=== PATIENT | male | born 1965 | race Caucasian/White ===

== ENCOUNTER 2024-02-10 13:42 | Emergency (ER) | payer BC, OTHER ==
[~2024-02-10] VITALS: Ht 172.7 cm; Wt 92.9 kg
[~2024-02-10 13:42] MED LIST: IBUP-1456; [UNRECOGNIZED DRUG - REMARK]
[2024-02-10 14:25] LABS: Basophils # (auto) 0 10 ^3/uL (0-0.2); Basophils % (auto) 0.1 % (0.0-2.0); Eosinophils # (auto) 0 10 ^3/uL (0-0.8); Hematocrit 37.9 % (41.0-53.0); Lymphocytes # (auto) 1.8 10 ^3/uL (0.4-5.4); Lymphocytes % (auto) 9.8 % (10.0-50.0); Mean Corpuscular Hgb Conc. 34.2 g/dL (32.0-36.0); Mean Corpuscular Volume 84.8 fL (80.0-100.0); Monocytes # (auto) 1.3 10 ^3/uL (0-1.3); Neutrophils # (auto) 15.6 10 ^3/uL (1.6-8.6); Neutrophils % (auto) 83.1 % (37.0-80.0); Red Blood Cells 4.48 10^6/uL (4.5-5.90); Red Cell Distribution Width 13.9 % (11.8-14.3); White Blood Cell 18.8 10^3/uL (4.4-10.8)
[2024-02-10 14:38] LABS: Chloride 97 mmol/L (98-107); Potassium 3.7 mmol/L (3.5-5.1); Sodium 130 mmol/L (136-145)
[2024-02-10 14:39] LABS: Anion Gap 10 (5-15); Calcium 9.6 mg/dL (8.7-10.4); Carbon Dioxide 23 mmol/L (20-30)
[2024-02-10 14:44] LABS: BUN/Creatinine Ratio 11.6 (10.0-20.0); Blood Urea Nitrogen 14 mg/dL (9-23); Glucose 253 mg/dL (74-106)
[2024-02-10 15:35] LABS: INR 1.1 (0.9-1.15); Partial Thromboplastin Time 29.8 SEC (24.5-34.5); Prothrombin Time 11.6 sec (9.3-11.8)
[2024-02-10 15:38] LABS: Alanine Aminotransferase 28 U/L (7-40); Albumin 4.2 g/dL (3.2-4.8); Alkaline Phosphatase 115 U/L (46-116); Aspartate Aminotransferase 21 U/L (13-40); Bilirubin, Total 0.6 mg/dL (0.2-1.0); Total Protein 6.5 g/dL (5.7-8.2)
[2024-02-10] MEDS: SODIUM CHLORIDE 0.9% 1,000 ML IVB ONE (15:59)
[2024-02-10] MEDS: MORPHINE SULFATE 4 MG/ML SYR/VIAL IV ONE (16:20)
[2024-02-10 18:53] LABS: Urine Bacteria FEW /hpf (None Seen); Urine Blood 1+ /uL (Negative); Urine Clarity Turbid (Clear); Urine Color Yellow (Yellow); Urine Mucus FEW (None Seen); Urine Protein, UAD 1+ (Negative); Urine Specific Gravity 1.014 (1.001-1.035); Urine Urobilinogen Normal (Negative); Urine WBC 21 /hpf (0 - 3); Urine pH 5.5 (5.0-9.0)
[2024-02-10 19:41] VITALS: BP 127/74; TEMP 99.2
[2024-02-10] MEDS: cefTRIAXone SOD 1,000 MG VL ONE (20:00)
[2024-02-10] MEDS: cefTRIAXone 2GM/50ML D5W 50 ML IV ONE (20:00)
[2024-02-10 20:18] VITALS: PULSE 101; RESP 20; O2SAT 99
[2024-02-10] MEDS ORDERED: CEPH250C PO (20:23)
== END 2024-02-10 20:59 | disposition home or self-care (01) ==
LOC: ER 13:42
DX: N39.0 Urinary tract infection, site not specified (principal); E86.0 Dehydration; E11.9 Type 2 diabetes mellitus without complications; R80.9 Proteinuria, unspecified; F17.210 Nicotine dependence, cigarettes, uncomplicated
CPT/HCPCS: 36415; 74176; 80053; 81001; 83690; 84484; 85025; 85610; 85730; 87086; 96361; 96365; 96375; 99285; J0696; J2270; J7030

== ENCOUNTER 2025-05-28 18:47 | Inpatient (IN) | payer OTHER, MEDICARE, MEDICAID ==
[~2025-05-28] VITALS: Ht 172.7 cm; Wt 89.4 kg
[~2025-05-28 18:47] MED LIST changes: +CEPH250C PO
--- NOTE | 2025-05-28 20:04 | DVH ---
CHEST RADIOGRAPH Indication: cp Technique: Single frontal view of the chest was obtained Comparison: None FINDINGS: Lines and Tubes: None Lungs: No focal consolidation. Pleura: No effusion. No pneumothorax. Cardiomediastinal contours: Unremarkable Bones: No acute osseous abnormality. IMPRESSION: 1. No acute cardiopulmonary disease.
[2025-05-28 20:58] LABS: Hematocrit 34.3 % (41.0-53.0); Hemoglobin 11.6 g/dL (13.5-17.5); Mean Corpuscular Hemoglobin 27.5 pg (28.0-32.0); Mean Corpuscular Volume 81.2 fL (80.0-100.0); Nucleated Red Blood Cells % 0.0 %
[2025-05-28 21:13] LABS: Potassium 3.9 mmol/L (3.5-5.1)
[2025-05-28 21:14] LABS: Anion Gap 9 (5-15); Calcium 9.6 mg/dL (8.7-10.4); Carbon Dioxide 22 mmol/L (20-31)
[2025-05-28] MEDS: SODIUM CHLORIDE 0.9% 1,000 ML IV ONE ×3 (21:18→22:28)
[2025-05-28 21:19] LABS: BUN/Creatinine Ratio 16.5 (10.0-20.0); Blood Urea Nitrogen 18 mg/dL (9-23)
[2025-05-28 21:23] LABS: Chloride 97 mmol/L (98-107); Sodium 128 mmol/L (136-145)
[2025-05-28 21:25] LABS: Glucose 341 mg/dL (74-106)
--- NOTE | 2025-05-28 21:44 | ECG ---
[facility] Test Date: 2025-05-28 Test Time: 21:41:16 Pat Name: OLIVIA BARKER Department: Room: Gender: [employer] Professor: : 1965 Requested By: EMMANUEL ARIZA Order Number: [id number] Reading MD: Measurements Intervals [place] Rate: 103 P: 51 [place]: 136 QRS: 55 QRSD: 91 T: 66 QT: 354 QTc: 464 Interpretive Statements Sinus tachycardia Please click the below link to view image of tracing.
--- NOTE | 2025-05-28 22:18 | ED.PDOC ---
History of Present Illness HPI Comments 59-year-old male who presents to the emergency department with nausea, vomiting, fever, chills, fatigue. He has a history of UTI in the past. He has had difficulty passing catheter through the urethra during straight cath. He has some lower back pain as well. Symptoms have been ongoing for 5 days. Past me dical history includes DM. REVIEW OF SYSTEMS: General: + fever, + chills, + fatigue HEENT: No sore throat, no earache, no congestion, no neck pain. Cardiac: + chest pain. No palpitations. Lungs: No shortness of breath, no+cough. GI: + nausea, + vomiting, no diarrhea, no constipation, + abdominal pain : No dysuria, frequency, or urgency. No hematuria. Musculoskeletal: No joint pain , no joint swelling, no extremity edema. Skin: No rash, no itching. Neuro: No headache, no dizziness, no weakness (And as sated in HPI) PHYSICAL EXAM: General: Awake, alert and oriented. No acute distress. Skin: Skin in warm, dry and intact. Appropriate color for ethnicity. HEENT: The head is normocephalic and atraumatic. Conjunctivae are clear without exudates or hemorrhage. Sclera is non-icteric. Eyelids are normal in appearance without swelling or lesions. Oral mucosa is pink and moist Neck: The neck is supple with normal range of motion. No JVD. Cardiac: Heart rate and rhythm are normal. No murmurs, gallops, or rubs are auscultated. Respiratory: No signs of respiratory distress. Lung sounds are clear in all lobes bilaterally without rales, rhonchi, or wheezes. Abdominal: Abdomen is soft, non-tender without distention, guarding or rigidity. Bowel sounds are present and normoactive in all four quadrants. No CVA tenderness. Neurological: The patient is awake, alert and oriented to person, place, and time with normal speech. Speech is clear. There is no facial asymmetry. Psychiatric: Appropriate mood and affect. Good judgement and insight. Chief Complaint: Nausea/Vomiting Time Seen by MD: 18:54 Primary Care Provider: DR MOLINA Allergies: Coded Allergies: Sulfa Antibiotics (Verified Allergy, Unknown, 05/28/25) Home Meds Active Scripts Cephalexin (KEFLEX CAPSULE) 250 Mg Cp, 250 MG PO QID for 7 Days, #28 CAP 0 Refills Prov:DELVIS SANTIAGO MD 02/10/24 Reported Medications [Just Finished Cipro] No Conflict Check 04/10/12 Ibuprofen (Ibuprofen) 800 Mg Tab, PRN 04/10/12 Mode of Arrival: Ambulatory Past Medical History PAST MEDICAL HISTORY: UTI'S Surgical History: Appendectomy Family History Family History: No family hx of Cancer, No family hx of Heart brian Social History Smoker: Cigarettes, Less Than 1 Pack/Day Alcohol: Rarely Drugs: Denies Drug Use Lives In: Home Was a procedure done? Was a procedure done?: No EKG EKG : Comments Sinus tachycardia, rate of 103. No STEMI. Differential Dx Considerations may include: Viral illness, pharyngitis, otitis media, bacteremia, pneumonia, UTI, meningitis, sepsis, other X-Ray, Labs, Meds, VS Vital Signs Date Time Temp Pulse Resp B/P (MAP) Pulse Ox O2 Delivery O2 Flow Rate FiO2 05/28/25 21:41 103 05/28/25 21:21 Room Air* 0 21 05/28/25 21:18 98.2 104 16 147/80 (102) 96 98.2 05/28/25 18:48 99.0 115 17 153/90 97 99.0 Lab Test 05/28/25 21:07 05/28/25 21:00 05/28/25 20:23 Range/Units Troponin I High Sensitivity 4 4 </=54 ng/L Urine Color Colorless Yellow Urine Clarity Turbid H Clear Urine pH 5.5 5.0-9.0 Urine Specific [place] 1.018 1.001-1.035 Urine Protein 1+ H Negative Urine Ketones Trace Negative Urine Blood Trace H Negative /uL Urine Nitrite Negative Negative Urine Bilirubin Negative Negative Urine Urobilinogen Normal Negative mg/dL Urine Leukocyte Esterase 2+ Negative /uL Urine RBC 1 0 - 3 /hpf Urine WBC Clumps Present None Seen /hpf Urine Microscopic WBC 56 H 0-3 /HPF Urine Squamous Epithelial Cells None seen <5 /hpf Urine Amorphous Crystals Few None Seen /hpf Urine Bacteria Few H None Seen /hpf Urine Glucose 4+ H Normal mg/dL White Blood Count 15.8 H 4.4-10.8 10^3/uL Red Blood Count 4.22 L 4.5-5.90 10^6/uL Hemoglobin 11.6 L 13.5-17.5 g/dL Hematocrit 34.3 L 41.0-53.0 % Mean Corpuscular Volume 81.2 80.0-100.0 fL Mean Corpuscular Hemoglobin 27.5 L 28.0-32.0 pg Mean Corpuscular Hemoglobin Concent 33.9 32.0-36.0 g/dL Red Cell Distribution Width 14.0 11.8-14.3 % Platelet Count 388 140-450 10^3/uL Mean Platelet Volume 6.9 6.9-10.8 fL Neutrophils (%) (Auto) 82.9 H 37.0-80.0 % Lymphocytes (%) (Auto) 8.2 L 10.0-50.0 % Monocytes (%) (Auto) 8.5 0.0-12.0 % Eosinophils (%) (Auto) 0.2 0.0-7.0 % Basophils (%) (Auto) 0.2 0.0-2.0 % Neutrophils # (Auto) 13.1 H 1.6-8.6 10 ^3/uL Lymphocytes # (Auto) 1.3 0.4-5.4 10 ^3/uL Monocytes # (Auto) 1.3 0-1.3 10 ^3/uL Eosinophils # (Auto) 0 0-0.8 10 ^3/uL Basophils # (Auto) 0 0-0.2 10 ^3/uL Nucleated Red Blood Cells 0.0 % Sodium Level 128 L 136-145 mmol/L Potassium Level 3.9 3.5-5.1 mmol/L Chloride Level 97 L 98-107 mmol/L Carbon Dioxide Level 22 20-31 mmol/L Anion Gap 9 5-15 Blood Urea Nitrogen 18 9-23 mg/dL Creatinine 1.09 0.700-1.30 mg/dL Glomerular Filtration Rate Calc 79 >90 mL/min BUN/Creatinine Ratio 16.5 10.0-20.0 Serum Glucose 341 H 74-106 mg/dL Hemoglobin A1c Pending Lactic Acid Level 1.6 0.4-2.0 mmol/L Calcium Level 9.6 8.7-10.4 mg/dL B-Type Natriuretic Peptide 23.59 0-100 pg/mL Current Medications Medications (Trade) Dose Ordered Sig/[place] Route Start Time Stop Time Status Last Admin Sodium Chloride 1,000 ml @ 130 mls/hr Q7H42M ONCE IV 05/28/25 19:45 05/29/25 03:26 05/28/25 22:03 Sodium Chloride 1,000 ml @ 1,000 mls/hr Q1H ONCE IV 05/28/25 19:45 05/28/25 20:44 DC 05/28/25 21:18 Sodium Chloride 1,000 ml @ 1,000 mls/hr Q1H ONCE IV 05/28/25 22:15 05/28/25 23:14 DC 05/28/25 22:28 Time of 1ST Reevaluation: 22:17 Reevaluation 1ST: Unchanged Patient Education/Counseling: Need For Follow Up Family Education/Counseling: No Family Present SEPSIS Sepsis Screen Date sepsis recognized/suspect: May 28, 2025 Time Sepsis recognized/suspect: 1847 Recent Procedure: No On Antibiotic Therapy: Yes Respiratory Rate >20: No Heart Rate >90: Yes Temp<36 C (96.8 F) or >38.3 C: No SBP <90 or MAP <65 mmHG: No New Acute Mental Status Change: No Is the patient on CPAP, BIPAP,: No Physician Orders Chest Xray 1 View (05/28/25 19:40) Vital Signs Q1HR (05/28/25 19:40) Saline Lock (05/28/25 19:40) Manager Electronic (05/28/25 ) Sodium Chloride 0.9% (05/28/25 19:45) Vital Signs Q1HR (05/28/25 19:40) Saline Lock (05/28/25 19:40) Manager Electronic (05/28/25 ) Rectal/Core Temps Only (05/28/25 19:40) Notify Md If Abnormal Vs (05/28/25 19:40) Blood Culture (05/28/25 19:40) Electrocardigram (05/28/25 20:40) Electrocardigram (05/28/25 22:40) Vital Signs Date Time Temp Pulse Resp B/P (MAP) Pulse Ox O2 Delivery O2 Flow Rate FiO2 05/28/25 21:41 103 05/28/25 21:21 Room Air* 0 21 05/28/25 21:18 98.2 104 16 147/80 (102) 96 98.2 05/28/25 18:48 99.0 115 17 153/90 97 99.0 Laboratory Tests Test 05/28/25 20:23 Lactic Acid Level 1.6 mmol/L (0.4-2.0) White Blood Count 15.8 10^3/uL (4.4-10.8) H Medications Medications Dose Ordered Sig/[place] Route Start Time Stop Time Status Last Admin Dose Admin Sodium Chloride 1,000 ml @ 130 mls/hr Q7H42M ONCE IV 05/28/25 19:45 05/29/25 03:26 05/28/25 22:03 Sodium Chloride 1,000 ml @ 1,000 mls/hr Q1H ONCE IV 05/28/25 19:45 05/28/25 20:44 DC 05/28/25 21:18 Sodium Chloride 1,000 ml @ 1,000 mls/hr Q1H ONCE IV 05/28/25 22:15 05/28/25 23:14 DC 05/28/25 22:28 Departure 1 Departure Time of Disposition: 22:17 Impression: Primary Impression: Hyperglycemia Disposition: ADMITTED INPATIENT Condition: Stable Comments MDM: Patient admitted to hospitalist service for further treatment, evaluation and monitoring. Extensive evaluation was performed in attempt to identify or rule out: (See differential diagnosis section) The following tests were ordered, and results were reviewed by me and discussed with patient: (See diagnostic results section) The following test were independently interpreted by me: EKG Decision regarding hospitalization or escalation of hospital level of care: Risk and benefits of admission for further treatment of patient's condition was considered. Due to patient's current clinical condition, high risk of decline and poor outcome if discharged and need for further inpatient management and monitoring, patient will be admitted to the hospital. Critical Care Note Critical Care Time?: No Stability Stability form required: No Heart Score Heart Score: Heart Score Response (Comments) Value History N/A 0 EKG N/A 0 Age N/A 0 Risk Factors N/A 0 Troponin N/A 0 Total 0 EMMANUEL ARIZA MD May 28, 2025 22:18
[2025-05-28 22:32] LABS: Urine Amorphous Crystal FEW /hpf (None Seen); Urine Protein, UAD 1+ (Negative); Urine WBC Clumps PRESENT /hpf (None Seen)
[2025-05-29] VITALS (8 sets, daily range): BP systolic 123–150; BP diastolic 70–94; PULSE 68–103; RESP 14–20; TEMP 98–98.3; O2SAT 93–98
[2025-05-29] MEDS ORDERED: ACETAMINOPHEN 325 MG TAB PO PRN
--- NOTE | 2025-05-29 01:09 | DVHHP2 ---
History of Present Illness Reason for Visit: Abdominal pain History of Present Illness 59-year-old male presents for evaluation of abdominal pain. Patient endorses a five day history of lower abdominal cramping that is intermittent. She reports episodes of nausea with vomiting. He states having history of recurrent UTIs. Denies fever or chills. No other acute complaints. Past Medical History UTI Past Surgical History Appendectomy, ex lap Family History Noncontributory Smoke: <1 pack per day ALCOHOL: occassional Drugs: None Lives: with Family Review of Systems Review of Systems Review of systems are currently negative otherwise addressed in HPI. Allergies: Coded Allergies: Sulfa Antibiotics (Verified Allergy, Unknown, 05/28/25) Medications Current Medications Medications Dose Ordered Sig/[place] Route Start Time Stop Time Status Last Admin Dose Admin Ceftriaxone Sodium 50 ml @ 100 mls/hr DAILY@2100 IV 05/29/25 21:00 Acetaminophen/ Hydrocodone Bitart 1 tab Q4HP PRN PO 05/29/25 00:00 Temazepam 15 mg QHSP PRN PO 05/29/25 00:00 Ondansetron HCl 4 mg Q4HP PRN IV 05/29/25 00:00 Acetaminophen 650 mg Q6HP PRN PO 05/29/25 00:00 Exam Vital Signs Vital Signs Date Time Temp Pulse Resp B/P (MAP) Pulse Ox O2 Delivery O2 Flow Rate FiO2 05/28/25 21:41 103 05/28/25 21:21 Room Air* 0 21 05/28/25 21:18 98.2 16 147/80 (102) 96 98.2 Exam Gen: 59-year-old male in mild distress Skin: Warm, dry, normal color and texture, no rash. HEENT: Normocephalic atraumatic, mucous membranes moist and pink. Neck: Cervical and supraclavicular nodes normal without enlargement, trachea is midline, thyroid gland is normal without masses. Pulmonary: Clear to auscultation and percussion bilaterally. Cardiac: Regular rate and rhythm. No murmur Abdomen: Soft, nontender, nondistended, bowel sounds present all 4 quadrants, no guarding, no rigidity, no organomegaly. Extremities: No cyanosis, clubbing, no edema Neuro: Cranial nerves II through XII grossly intact, normal affect and speech, no focal motor deficits. Labs/Xrays ORDERING PHYSICIAN: EMMANUEL ARIZA MD PROCEDURE(s): CXR1 - CHEST XRAY 1 VIEW REASON: cp ORDER NUMBER(s): [id number], ACCESSION NUMBER(s): [id number] CHEST RADIOGRAPH Indication: cp Technique: Single frontal view of the chest was obtained Comparison: None FINDINGS: Lines and Tubes: None Lungs: No focal consolidation. Pleura: No effusion. No pneumothorax. Cardiomediastinal contours: Unremarkable Bones: No acute osseous abnormality. IMPRESSION: 1. No acute cardiopulmonary disease. Labs Test 05/28/25 21:07 05/28/25 21:00 05/28/25 20:23 Range/Units Troponin I High Sensitivity 4 </=54 ng/L Urine Color Colorless Yellow Urine Clarity Turbid H Clear Urine pH 5.5 5.0-9.0 Urine Specific [place] 1.018 1.001-1.035 Urine Protein 1+ H Negative Urine Ketones Trace Negative Urine Blood Trace H Negative /uL Urine Nitrite Negative Negative Urine Bilirubin Negative Negative Urine Urobilinogen Normal Negative mg/dL Urine Leukocyte Esterase 2+ Negative /uL Urine RBC 1 0 - 3 /hpf Urine WBC Clumps Present None Seen /hpf Urine Microscopic WBC 56 H 0-3 /HPF Urine Squamous Epithelial Cells None seen <5 /hpf Urine Amorphous Crystals Few None Seen /hpf Urine Bacteria Few H None Seen /hpf Urine Glucose 4+ H Normal mg/dL White Blood Count 15.8 H 4.4-10.8 10^3/uL Red Blood Count 4.22 L 4.5-5.90 10^6/uL Hemoglobin 11.6 L 13.5-17.5 g/dL Hematocrit 34.3 L 41.0-53.0 % Mean Corpuscular Volume 81.2 80.0-100.0 fL Mean Corpuscular Hemoglobin 27.5 L 28.0-32.0 pg Mean Corpuscular Hemoglobin Concent 33.9 32.0-36.0 g/dL Red Cell Distribution Width 14.0 11.8-14.3 % Platelet Count 388 140-450 10^3/uL Mean Platelet Volume 6.9 6.9-10.8 fL Neutrophils (%) (Auto) 82.9 H 37.0-80.0 % Lymphocytes (%) (Auto) 8.2 L 10.0-50.0 % Monocytes (%) (Auto) 8.5 0.0-12.0 % Eosinophils (%) (Auto) 0.2 0.0-7.0 % Basophils (%) (Auto) 0.2 0.0-2.0 % Neutrophils # (Auto) 13.1 H 1.6-8.6 10 ^3/uL Lymphocytes # (Auto) 1.3 0.4-5.4 10 ^3/uL Monocytes # (Auto) 1.3 0-1.3 10 ^3/uL Eosinophils # (Auto) 0 0-0.8 10 ^3/uL Basophils # (Auto) 0 0-0.2 10 ^3/uL Nucleated Red Blood Cells 0.0 % Sodium Level 128 L 136-145 mmol/L Potassium Level 3.9 3.5-5.1 mmol/L Chloride Level 97 L 98-107 mmol/L Carbon Dioxide Level 22 20-31 mmol/L Anion Gap 9 5-15 Blood Urea Nitrogen 18 9-23 mg/dL Creatinine 1.09 0.700-1.30 mg/dL Glomerular Filtration Rate Calc 79 >90 mL/min BUN/Creatinine Ratio 16.5 10.0-20.0 Serum Glucose 341 H 74-106 mg/dL Lactic Acid Level 1.6 0.4-2.0 mmol/L Calcium Level 9.6 8.7-10.4 mg/dL B-Type Natriuretic Peptide 23.59 0-100 pg/mL SEPSIS Sepsis Screen Date sepsis recognized/suspect: May 28, 2025 Time Sepsis recognized/suspect: 1847 Recent Procedure: No On Antibiotic Therapy: Yes Respiratory Rate >20: No Heart Rate >90: Yes Temp<36 C (96.8 F) or >38.3 C: No SBP <90 or MAP <65 mmHG: No New Acute Mental Status Change: No Is the patient on CPAP, BIPAP,: No Physician Orders Chest Xray 1 View (05/28/25 19:40) Vital Signs Q1HR (05/28/25 19:40) Saline Lock (05/28/25 19:40) Note Keeper (05/28/25 ) Sodium Chloride 0.9% (05/28/25 19:45) Vital Signs Q1HR (05/28/25 19:40) Saline Lock (05/28/25 19:40) Note Keeper (05/28/25 ) Rectal/Core Temps Only (05/28/25 19:40) Notify Md If Abnormal Vs (05/28/25 19:40) Blood Culture (05/28/25 19:40) Electrocardigram (05/28/25 20:40) Electrocardigram (05/28/25 22:40) Ceftriaxone 1gm/50ml (Rocephin) (05/29/25 21:00) Urine Bacterial Culture (05/28/25 23:50) [facility]Diabetes (05/29/25 Breakfast) Admit (05/28/25 23:50) Hemoglobin A1c (05/28/25 23:50) Basic Metabolic Panel (05/29/25 04:00) Hydrocodone-Acet 5/325mg Tab ([place] 5/32 (05/29/25 00:00) Temazepam (Restoril) (05/29/25 00:00) Ondansetron Hcl (Zofran) (05/29/25 00:00) Complete Blood Count (05/29/25 04:00) Condition: Stable (05/28/25 23:50) Acetaminophen Tablet (Tylenol Tablet) (05/29/25 00:00) Bedrest With Bathroom Privileg (05/28/25 23:50) Vital Signs Date Time Temp Pulse Resp B/P (MAP) Pulse Ox O2 Delivery O2 Flow Rate FiO2 05/28/25 21:41 103 05/28/25 21:21 Room Air* 0 21 05/28/25 21:18 98.2 104 16 147/80 (102) 96 98.2 05/28/25 18:48 99.0 115 17 153/90 97 99.0 Laboratory Tests Test 05/28/25 20:23 Lactic Acid Level 1.6 mmol/L (0.4-2.0) White Blood Count 15.8 10^3/uL (4.4-10.8) H Medications Medications Dose Ordered Sig/[place] Route Start Time Stop Time Status Last Admin Dose Admin Sodium Chloride 1,000 ml @ 130 mls/hr Q7H42M ONCE IV 05/28/25 19:45 05/29/25 03:26 05/28/25 22:03 130 MLS/HR Sodium Chloride 1,000 ml @ 1,000 mls/hr Q1H ONCE IV 05/28/25 19:45 05/28/25 20:44 DC 05/28/25 21:18 1,000 MLS/HR Sodium Chloride 1,000 ml @ 1,000 mls/hr Q1H ONCE IV 05/28/25 22:15 05/28/25 23:14 DC 05/28/25 22:28 1,000 MLS/HR Assessment/Plan Assessment/Plan Assessment Complicated UTI Hyperglycemia Gastroenteritis Leukocytosis Plan Admit the patient to [facility] to the hospitalist Bryn Urine bacterial culture pending Pain management Continue treatment per orders. Plan discussed with: Patient My Orders Orders - CHARLETTE MCCAULEY Procedure Category Date Status Time Ceftriaxone 1gm/50ml PHA 05/29/25 In Process (Rocephin) 21:00 Urine Bacterial MIGUEL 05/28/25 In Process Culture 23:50 Consistent DIET 05/29/25 Transmitted Carb(Ccho)Diabetes Breakfast Admit ADMIT 05/28/25 Transmitted 23:50 Hemoglobin A1c LAB 05/28/25 In Process 23:50 Basic Metabolic Panel LAB 05/29/25 Logged 04:00 Hydrocodone-Acet PHA 05/29/25 In Process 5/325mg Tab ([place] 00:00 Temazepam (Restoril) PHA 05/29/25 In Process 00:00 Ondansetron Hcl PHA 05/29/25 In Process (Zofran) 00:00 Complete Blood Count LAB 05/29/25 Logged 04:00 Condition: Stable TRICIA 05/28/25 In Process 23:50 Acetaminophen Tablet PHA 05/29/25 In Process (Tylenol Tablet) 00:00 Bedrest With Bathroom TRICIA 05/28/25 In Process Privileg 23:50 Date of Service: May 28, 2025 Billing Provider: CHARLETTE MCCAULEY Common Visit Codes: [id number] INP/OBS CARE (MOD) CHARLETTE MCCAULEY May 29, 2025 01:09
[2025-05-29] MEDS: HYDROcodone-ACET 5/325MG TAB PO PRN (02:07)
[2025-05-29 06:13] LABS: Hematocrit 31.2 % (41.0-53.0); Hemoglobin 10.6 g/dL (13.5-17.5); Mean Corpuscular Hemoglobin 28.0 pg (28.0-32.0); Mean Corpuscular Volume 82.4 fL (80.0-100.0); Nucleated Red Blood Cells % 0.0 %
[2025-05-29 06:20] LABS: Chloride 99 mmol/L (98-107); Potassium 4.5 mmol/L (3.5-5.1)
[2025-05-29 06:21] LABS: Anion Gap 9 (5-15); Carbon Dioxide 25 mmol/L (20-31)
[2025-05-29 06:23] LABS: Calcium 8.5 mg/dL (8.7-10.4); Sodium 133 mmol/L (136-145)
[2025-05-29 06:26] LABS: BUN/Creatinine Ratio 14.3 (10.0-20.0); Blood Urea Nitrogen 17 mg/dL (9-23)
[2025-05-29 06:30] LABS: Glucose 312 mg/dL (74-106)
--- NOTE | 2025-05-29 13:44 | DVHPN2 ---
Subjective Patient continues to report having lower back pain, intermittent fevers Reviewed: Care Plan, H&P, Labs, Medications Changes from previous H/P or p: No Changes General: Per HPI Objective Vitals Vital Signs Date Time Temp Pulse Resp B/P (MAP) Pulse Ox O2 Delivery O2 Flow Rate FiO2 05/29/25 13:00 98.0 81 14 132/71 (91) 98 98.0 05/29/25 07:30 Room Air* 0 21 Intake/Output Intake and Output 05/29/25 07:00 Intake Total 1400 ml Balance 1400 ml Intake Oral 400 ml IV Total 1000 ml # Voids 1 General Appearance: Alert, Oriented X3, Cooperative HEENT: Atraumatic, PERRLA Lungs: Clear to auscultation, Normal air movement Cardiovascular: Normal S1, Normal S2 Abdomen: Normal bowel sounds, Soft, No tenderness, No hepatospenomegaly Genitourinary: Other (Urinary retention) Musculoskeletal: Normal sensory function, Normal motor function Neuro: Normal gait, Normal speech Skin: Dry, Intact Psych/Mental Status: Mental status NL, Mood NL Medications Current Medications Medications Dose Ordered Sig/[place] Route Start Time Stop Time Status Last Admin Dose Admin Ceftriaxone Sodium 50 ml @ 100 mls/hr DAILY@2100 IV 05/29/25 21:00 Acetaminophen/ Hydrocodone Bitart 1 tab Q4HP PRN PO 05/29/25 00:00 05/29/25 10:43 1 TAB Temazepam 15 mg QHSP PRN PO 05/29/25 00:00 Ondansetron HCl 4 mg Q4HP PRN IV 05/29/25 00:00 Acetaminophen 650 mg Q6HP PRN PO 05/29/25 00:00 Laboratory Results Laboratory Tests 05/29/25 05:13 Chemistry Test 05/28/25 20:23 05/29/25 05:13 Calcium Level 9.6 mg/dL (8.7-10.4) 8.5 mg/dL (8.7-10.4) L Cardiac Markers Test 05/28/25 20:23 B-Type Natriuretic Peptide 23.59 pg/mL (0-100) HgA1c, TSH Test 05/28/25 20:23 Hemoglobin A1c 9.4 % A1C (<5.7) H Urinalysis Test 05/28/25 21:00 Urine Color Colorless (Yellow) Urine Clarity Turbid (Clear) H Urine pH 5.5 (5.0-9.0) Urine Specific [place] 1.018 (1.001-1.035) Urine Protein 1+ (Negative) H Urine Ketones Trace (Negative) Urine Blood Trace /uL (Negative) H Urine Nitrite Negative (Negative) Urine Bilirubin Negative (Negative) Urine Urobilinogen Normal mg/dL (Negative) Urine Leukocyte Esterase 2+ /uL (Negative) Urine RBC 1 /hpf (0 - 3) Urine WBC Clumps Present /hpf (None Seen) Urine Microscopic WBC 56 /HPF (0-3) H Urine Squamous Epithelial Cells None seen /hpf (<5) Urine Amorphous Crystals Few /hpf (None Seen) Urine Bacteria Few /hpf (None Seen) H Urine Glucose 4+ mg/dL (Normal) H Labs and/or images reviewed: Labs reviewed by me, Image(s) reviewed by me Assessment/Plan Assessment/Plan Impression: -sepsis -complicated cystitis -chronic urinary obstruction with self catheterization -obesity -history of frequent UTIs Plan: -given patient has recurrent UTIs, broadened coverage with Meropenem -Zabala catheter placement while in hospital. Patient was agreeable. Repeat UA/UC after catheter has been placed -pain management -Kidney ultrasound -repeat labs in a.m. Total time spent with patient discussing and formulating plan of care: 35 minutes. This medical document was created using an electronic medical record system with [employer] dictation system. Although this document has been carefully reviewed, there may still be some phonetic and typographical errors. These areas are purely typographical due to imperfections of the software programs, and do not reflect any compromise in the patient's medical care. Plan discussed with: Patient, Other (RN) Date of Service: May 29, 2025 Billing Provider: DAYSI GERARD NP Common Visit Codes: [id number] INP/OBS CARE(HIGH) DAYSI GERARD NP May 29, 2025 13:44
--- NOTE | 2025-05-29 15:06 | DVH ---
[facility] [address] [facility] [address] Ph: [phone] DIAGNOSTIC IMAGING Diagnostic Imaging Report : [id number] Signed PATIENT: OLIVIA BARKER DARRON ACCT: [id number] UNIT: [id number] : 1965 LOC: CENTRAL ROOM / BED: [facility] / AGE / SEX: 59 / M ADM STATUS: ADM IN SERVICE 1344 ORDERING PHYSICIAN: DAYSI GERARD NP PROCEDURE(s): KIDUS - KIDNEY REASON: obstructive uropathy ORDER NUMBER(s): [id number], ACCESSION NUMBER(s): [id number] INDICATION: obstructive uropathy TECHNIQUE: Multiple real-time sonographic images of the kidneys and bladder were obtained. COMPARISON: None FINDINGS: The right kidney measures 12.3 cm in length, which is normal in size. There is normal echogenicity of the right kidney. There is mild prominence of the renal pelvis. No hydronephrosis. The left kidney measures 11.9 cm in length, which is normal in size. There is normal echogenicity of the left kidney. No hydronephrosis. There is an anechoic 2.9 cm simple appearing cyst of the superior pole of the left kidney. No intraluminal mass is seen in the bladder. The bladder wall is trabeculated and mildly thickened. The right and left ureteral jets are visualized during this exam. At the time of examination, the bladder volume is calculated to be 695 cc. The prostate is not definitely seen. The visualized liver is diffusely echogenic. IMPRESSION: Thickened, trabeculated urinary bladder, suggestive of chronic outlet obstruction. No hydronephrosis of either kidney. ATED BY: CONOR SMIS MD DICTATED DATE/TIME: 05/29/25 150 SIGNED BY: CONOR SIMS MD SIGNED DATE/TIME: 05/29/25 150 CC:
[2025-05-29] MEDS: TEMAZEPAM 15 MG CAP PO PRN (21:34)
[2025-05-30 01:00] VITALS: BP 147/91; PULSE 94; RESP 20; TEMP 98; O2SAT 94
[2025-05-30 05:00] VITALS: BP 117/70; PULSE 93; RESP 20; TEMP 98.2; O2SAT 97
[2025-05-30] MEDS ORDERED: DEXTROSE (50%) 50ML SYRG IV PRN (08:45)
[2025-05-30 09:00] VITALS: BP 125/72; PULSE 82; RESP 18; TEMP 98.9; O2SAT 97
[2025-05-30] MEDS ORDERED: ERTAPENEM SOD 1 GM INJ VIAL IM SCH (10:00)
[2025-05-30 10:03] LABS: Hematocrit 35.7 % (41.0-53.0); Hemoglobin 11.8 g/dL (13.5-17.5); Mean Corpuscular Hemoglobin 27.1 pg (28.0-32.0); Mean Corpuscular Volume 81.8 fL (80.0-100.0); Nucleated Red Blood Cells % 0.1 %
[2025-05-30] MEDS ORDERED: METF-371 PO (10:04)
[2025-05-30] MEDS ORDERED: TRAM50TA2 PO (10:04)
[2025-05-30] MEDS ORDERED: GLIP5TAB21 PO (10:04)
[2025-05-30] MEDS ORDERED: SITA100T7 PO (10:04)
[2025-05-30] MEDS ORDERED: ARMO1TAB2 PO (10:04)
[2025-05-30] MEDS ORDERED: TRAZ-228 PO (10:11)
[2025-05-30] MEDS ORDERED: MELA3TAB27 PO (10:11)
[2025-05-30] MEDS ORDERED: ATOR40TA52 PO (10:11)
[2025-05-30] MEDS ORDERED: BUPR-346 PO (10:11)
[2025-05-30] MEDS ORDERED: BUSP15TA60 PO (10:11)
[2025-05-30] MEDS ORDERED: HYDR50TA69 PO (10:11)
[2025-05-30] MEDS ORDERED: IBUP-1456 PO (10:11)
[2025-05-30] MEDS ORDERED: PATIENTS OWN MEDICATION (Buspirone Hcl 30 MG) PO SCH (10:30)
[2025-05-30] MEDS: MEROPENEM 1GM IVPB 50 ML IV SCH (10:34)
[2025-05-30] MEDS: ACCU-CHEK COMFORT CURVE STRIP VI SCH (11:22)
[2025-05-30] MEDS: InsuLIN REG 1unit/0.01ml Soln (100units/ml) SC SCH ×2 (12:22→21:31)
[2025-05-30 13:00] VITALS: BP_SYST 110; BP_SYST 151; BP_DIAS 70; BP_DIAS 89; PULSE 78; PULSE 93; RESP 18; TEMP 98.7; O2SAT 98
[2025-05-30] MEDS: hydrOXYzine 25 MG TAB or CAP PO PRN (16:36)
[2025-05-30 16:44] VITALS: BP 156/92; PULSE 84; RESP 16; TEMP 97.8; O2SAT 96
[2025-05-30] MEDS: ONDANSETRON HCL 4 MG/2 ML VIAL IV PRN (17:40)
[2025-05-30 21:00] VITALS: BP 151/90; PULSE 92; RESP 17; TEMP 97.8; O2SAT 94
[2025-05-30] MEDS: ATORVASTATIN 20 MG TAB PO SCH (21:30)
[2025-05-30] MEDS ORDERED: PATIENTS OWN MEDICATION (Atorvastatin Calcium 1 TAB) PO SCH (22:00)
[2025-05-31] VITALS (8 sets, daily range): BP systolic 128–155; BP diastolic 74–90; PULSE 78–93; RESP 16–20; TEMP 97.8–98.7; O2SAT 93–98
[2025-05-31 06:39] LABS: Mean Corpuscular Hemoglobin 27.8 pg (28.0-32.0); Nucleated Red Blood Cells % 0.0 %
[2025-05-31 06:41] LABS: Hematocrit 33.3 % (41.0-53.0); Hemoglobin 11.4 g/dL (13.5-17.5); Mean Corpuscular Volume 81.0 fL (80.0-100.0)
[2025-05-31 07:32] LABS: Anion Gap 12 (5-15); Calcium 8.8 mg/dL (8.7-10.4); Carbon Dioxide 24 mmol/L (20-31)
[2025-05-31 07:37] LABS: BUN/Creatinine Ratio 11.1 (10.0-20.0); Blood Urea Nitrogen 11 mg/dL (9-23)
[2025-05-31 07:42] LABS: Chloride 103 mmol/L (98-107); Glucose 258 mg/dL (74-106); Potassium 4.2 mmol/L (3.5-5.1); Sodium 139 mmol/L (136-145)
--- NOTE | 2025-05-31 11:15 | DVHPN2 ---
Subjective Patient continues to report having lower back pain, intermittent fevers Reviewed: Care Plan, H&P, Labs, Medications Changes from previous H/P or p: No Changes General: Per HPI Objective Vitals Vital Signs Date Time Temp Pulse Resp B/P (MAP) Pulse Ox O2 Delivery O2 Flow Rate FiO2 05/30/25 13:00 98.7 93 18 151/89 (109) 98 98.7 05/30/25 08:30 Room Air* 0 21 Intake/Output Intake and Output 05/30/25 07:00 Intake Total 2500 ml Balance 2500 ml Intake Oral 2500 ml # Voids 14 # Bowel Movements 2 General Appearance: Alert, Oriented X3, Cooperative HEENT: Atraumatic, PERRLA Lungs: Clear to auscultation, Normal air movement Cardiovascular: Normal S1, Normal S2 Abdomen: Normal bowel sounds, Soft, No tenderness, No hepatospenomegaly Genitourinary: Other (Urinary retention) Musculoskeletal: Normal sensory function, Normal motor function Neuro: Normal gait, Normal speech Skin: Dry, Intact Psych/Mental Status: Mental status NL, Mood NL Medications Current Medications Medications Dose Ordered Sig/[place] Route Start Time Stop Time Status Last Admin Dose Admin Acetaminophen/ Hydrocodone Bitart 1 tab Q4HP PRN PO 05/29/25 00:00 05/30/25 04:39 1 TAB Temazepam 15 mg QHSP PRN PO 05/29/25 00:00 05/29/25 21:34 15 MG Ondansetron HCl 4 mg Q4HP PRN IV 05/29/25 00:00 Acetaminophen 650 mg Q6HP PRN PO 05/29/25 00:00 Meropenem 50 ml @ 17 mls/hr Q8H IV 05/30/25 10:00 05/30/25 10:34 17 MLS/HR Diagnostic Test (Pha) 1 strip ACHS 05/30/25 11:30 05/30/25 11:22 1 STRIP Insulin Human Regular HS SC 05/30/25 22:00 Insulin Human Regular AC SC 05/30/25 11:30 05/30/25 12:22 15 UNITS Dextrose 50 ml UD PRN IV 05/30/25 08:45 Patient Own Medication 1 tab HS PO 05/30/25 22:00 UNV Patient Own Medication 30 mg DAILY PO 05/30/25 10:30 UNV Patient Own Medication 100 mg DAILY PRN PO 05/30/25 10:30 UNV Hydroxyzine Pamoate 50 mg Q6HP PRN PO 05/30/25 10:30 Atorvastatin Calcium 40 mg HS PO 05/30/25 22:00 Buspirone HCl 15 mg DAILY PO 05/31/25 10:00 Trazodone HCl 100 mg DAILY PRN PO 05/30/25 11:15 Laboratory Results Laboratory Tests 05/29/25 05:13 05/30/25 09:21 Urinalysis Test 05/28/25 21:00 Urine Color Colorless (Yellow) Urine Clarity Turbid (Clear) H Urine pH 5.5 (5.0-9.0) Urine Specific [place] 1.018 (1.001-1.035) Urine Protein 1+ (Negative) H Urine Ketones Trace (Negative) Urine Blood Trace /uL (Negative) H Urine Nitrite Negative (Negative) Urine Bilirubin Negative (Negative) Urine Urobilinogen Normal mg/dL (Negative) Urine Leukocyte Esterase 2+ /uL (Negative) Urine RBC 1 /hpf (0 - 3) Urine WBC Clumps Present /hpf (None Seen) Urine Microscopic WBC 56 /HPF (0-3) H Urine Squamous Epithelial Cells None seen /hpf (<5) Urine Amorphous Crystals Few /hpf (None Seen) Urine Bacteria Few /hpf (None Seen) H Urine Glucose 4+ mg/dL (Normal) H Microbiology Microbiology Date/Time Source Procedure Growth Status 05/29/25 16:40 Urine - [place] Urine Culture - Preliminary Resulted 05/28/25 20:23 Blood Blood Culture - Preliminary Resulted Labs and/or images reviewed: Labs reviewed by me, Image(s) reviewed by me Assessment/Plan Assessment/Plan Impression: -sepsis -complicated cystitis -chronic urinary obstruction with self catheterization -obesity -history of frequent UTIs Plan: Events: Long discussion made with the patient and who was bedside. -given patient has recurrent UTIs, broadened coverage with Meropenem -pain management -Kidney ultrasound: Negative for nephrolithiasis -repeat labs in a.m. Total time spent with patient discussing and formulating plan of care: 35 minutes. This medical document was created using an electronic medical record system with elicit dictation system. Although this document has been carefully reviewed, there may still be some phonetic and typographical errors. These areas are purely typographical due to imperfections of the software programs, and do not reflect any compromise in the patient's medical care. Plan discussed with: Patient, Other (RN) My Orders Orders - DAYSI GERARD NP Procedure Category Date Status Time Basic Metabolic Panel LAB 05/31/25 Verified 04:00 Meropenem 1gm Ivpb PHA 05/30/25 In Process (Merrem 1gm/50ml) 10:00 Glucose Blood PHA 05/30/25 In Process (Accu-Chek Comfort 11:30 Insulin R (Human) PHA 05/30/25 In Process (Insulin R) 22:00 Insulin R (Human) PHA 05/30/25 In Process (Insulin R) 11:30 Dextrose 50% Syringe PHA 05/30/25 In Process 08:45 Hydroxyzine Oral PHA 05/30/25 In Process (Vistaril Oral) 10:30 Atorvastatin (Lipitor) PHA 05/30/25 In Process 22:00 Buspirone Hcl Tablet PHA 05/31/25 In Process (Buspar Tablet) 10:00 Trazodone Hcl PHA 05/30/25 In Process (Desyrel) 11:15 Complete Blood Count LAB 05/31/25 Verified 04:00 Date of Service: May 30, 2025 Billing Provider: DAYSI GERARD NP Common Visit Codes: [id number] INP/OBS CARE(HIGH) DAYSI GERARD NP May 30, 2025 14:19
--- NOTE | 2025-05-31 13:59 | DVHPN2 ---
Subjective Patient continues to report having lower back pain, intermittent fevers Reviewed: Care Plan, H&P, Labs, Medications Changes from previous H/P or p: No Changes General: Per HPI Objective Vitals Vital Signs Date Time Temp Pulse Resp B/P (MAP) Pulse Ox O2 Delivery O2 Flow Rate FiO2 05/31/25 12:51 97.9 85 20 145/90 (108) 93 97.9 05/31/25 08:00 Room Air* 0 21 Intake/Output Intake and Output 05/31/25 07:00 Intake Total 2320 ml Output Total 2450 ml Balance -130 ml Intake Oral 2270 ml IV Total 50 ml Output Urine Total 2450 ml # Voids 5 General Appearance: Alert, Oriented X3, Cooperative HEENT: Atraumatic, PERRLA Lungs: Clear to auscultation, Normal air movement Cardiovascular: Normal S1, Normal S2 Abdomen: Normal bowel sounds, Soft, No tenderness, No hepatospenomegaly Genitourinary: Other (Urinary retention) Musculoskeletal: Normal sensory function, Normal motor function Neuro: Normal gait, Normal speech Skin: Dry, Intact Psych/Mental Status: Mental status NL, Mood NL Medications Current Medications Medications Dose Ordered Sig/[place] Route Start Time Stop Time Status Last Admin Dose Admin Acetaminophen/ Hydrocodone Bitart 1 tab Q4HP PRN PO 05/29/25 00:00 05/30/25 04:39 1 TAB Temazepam 15 mg QHSP PRN PO 05/29/25 00:00 05/29/25 21:34 15 MG Ondansetron HCl 4 mg Q4HP PRN IV 05/29/25 00:00 05/30/25 17:40 4 MG Acetaminophen 650 mg Q6HP PRN PO 05/29/25 00:00 Meropenem 50 ml @ 17 mls/hr Q8H IV 05/30/25 10:00 05/31/25 10:09 17 MLS/HR Diagnostic Test (Pha) 1 strip ACHS 05/30/25 11:30 05/31/25 11:44 1 STRIP Insulin Human Regular HS SC 05/30/25 22:00 05/30/25 21:31 4 UNITS Insulin Human Regular AC SC 05/30/25 11:30 05/31/25 12:17 12 UNITS Dextrose 50 ml UD PRN IV 05/30/25 08:45 Patient Own Medication 1 tab HS PO 05/30/25 22:00 UNV Patient Own Medication 30 mg DAILY PO 05/30/25 10:30 UNV Patient Own Medication 100 mg DAILY PRN PO 05/30/25 10:30 UNV Hydroxyzine Pamoate 50 mg Q6HP PRN PO 05/30/25 10:30 05/30/25 16:36 50 MG Atorvastatin Calcium 40 mg HS PO 05/30/25 22:00 05/30/25 21:30 40 MG Buspirone HCl 15 mg DAILY PO 05/31/25 10:00 05/31/25 10:09 15 MG Trazodone HCl 100 mg DAILY PRN PO 05/30/25 11:15 05/30/25 21:30 100 MG Laboratory Results Laboratory Tests 05/31/25 05:26 Chemistry Test 05/31/25 05:26 Calcium Level 8.8 mg/dL (8.7-10.4) Urinalysis Test 05/28/25 21:00 Urine Color Colorless (Yellow) Urine Clarity Turbid (Clear) H Urine pH 5.5 (5.0-9.0) Urine Specific [place] 1.018 (1.001-1.035) Urine Protein 1+ (Negative) H Urine Ketones Trace (Negative) Urine Blood Trace /uL (Negative) H Urine Nitrite Negative (Negative) Urine Bilirubin Negative (Negative) Urine Urobilinogen Normal mg/dL (Negative) Urine Leukocyte Esterase 2+ /uL (Negative) Urine RBC 1 /hpf (0 - 3) Urine WBC Clumps Present /hpf (None Seen) Urine Microscopic WBC 56 /HPF (0-3) H Urine Squamous Epithelial Cells None seen /hpf (<5) Urine Amorphous Crystals Few /hpf (None Seen) Urine Bacteria Few /hpf (None Seen) H Urine Glucose 4+ mg/dL (Normal) H Microbiology Microbiology Date/Time Source Procedure Growth Status 05/29/25 16:40 Urine - [place] Urine Culture - Preliminary Resulted 05/28/25 20:23 Blood Blood Culture - Preliminary Resulted Labs and/or images reviewed: Labs reviewed by me, Image(s) reviewed by me Assessment/Plan Assessment/Plan Impression: -sepsis -complicated cystitis -chronic urinary obstruction with self catheterization -obesity -history of frequent UTIs Plan: Events: Klebsiella pneumoniae in urine. Blood culture pending. -display antibiotic therapy to Meropenem as sole treatment -pain management -Kidney ultrasound: Negative for nephrolithiasis -repeat blood culture -repeat labs in a.m. Total time spent with patient discussing and formulating plan of care: 35 minutes. This medical document was created using an electronic medical record system with [employer] dictation system. Although this document has been carefully reviewed, there may still be some phonetic and typographical errors. These areas are purely typographical due to imperfections of the software programs, and do not reflect any compromise in the patient's medical care. Plan discussed with: Patient, Other (RN) My Orders Orders - DAYSI GERARD NP Procedure Category Date Status Time Insert [place] Catheter TRICIA 05/30/25 In Process 14:39 Blood Culture MIGUEL 05/31/25 Logged 13:20 Complete Blood Count LAB 06/01/25 Verified 05:00 Complete Blood Count LAB 06/02/25 Verified 05:00 Complete Blood Count LAB 06/03/25 Verified 05:00 Basic Metabolic Panel LAB 06/01/25 Verified 05:00 Basic Metabolic Panel LAB 06/02/25 Verified 05:00 Basic Metabolic Panel LAB 06/03/25 Verified 05:00 Date of Service: May 31, 2025 Billing Provider: DAYSI GERARD NP Common Visit Codes: [id number] INP/OBS CARE(HIGH) DAYSI GERARD NP May 31, 2025 13:59
[2025-06-01] VITALS (7 sets, daily range): BP systolic 109–150; BP diastolic 75–92; PULSE 79–94; RESP 18–20; TEMP 97.7–98.6; O2SAT 93–98
[2025-06-01 07:09] LABS: Hemoglobin 12.6 g/dL (13.5-17.5)
[2025-06-01 07:11] LABS: Hematocrit 36.4 % (41.0-53.0); Mean Corpuscular Hemoglobin 28.1 pg (28.0-32.0); Mean Corpuscular Volume 81.0 fL (80.0-100.0); Nucleated Red Blood Cells % 0.2 %
[2025-06-01 07:15] LABS: Anion Gap 13 (5-15); Carbon Dioxide 25 mmol/L (20-31); Chloride 102 mmol/L (98-107); Potassium 4.0 mmol/L (3.5-5.1); Sodium 140 mmol/L (136-145)
[2025-06-01 07:16] LABS: Calcium 9.2 mg/dL (8.7-10.4)
[2025-06-01 07:21] LABS: BUN/Creatinine Ratio 10.9 (10.0-20.0); Blood Urea Nitrogen 11 mg/dL (9-23); Glucose 227 mg/dL (74-106)
[2025-06-02 01:00] VITALS: BP 121/78; PULSE 87; RESP 18; TEMP 97.9; O2SAT 95
[2025-06-02 05:00] VITALS: BP 134/76; PULSE 84; RESP 16; TEMP 98; O2SAT 96
[2025-06-02 06:24] LABS: Nucleated Red Blood Cells % 0.0 %
[2025-06-02 06:26] LABS: Hematocrit 35.9 % (41.0-53.0); Hemoglobin 12.2 g/dL (13.5-17.5); Mean Corpuscular Hemoglobin 27.4 pg (28.0-32.0); Mean Corpuscular Volume 80.5 fL (80.0-100.0)
[2025-06-02 06:32] LABS: Chloride 102 mmol/L (98-107); Potassium 4.0 mmol/L (3.5-5.1); Sodium 139 mmol/L (136-145)
[2025-06-02 06:33] LABS: Anion Gap 12 (5-15); Carbon Dioxide 25 mmol/L (20-31)
[2025-06-02 06:34] LABS: Calcium 9.4 mg/dL (8.7-10.4)
[2025-06-02 06:39] LABS: BUN/Creatinine Ratio 12.4 (10.0-20.0); Blood Urea Nitrogen 11 mg/dL (9-23)
[2025-06-02 07:03] LABS: Glucose 253 mg/dL (74-106)
[2025-06-02 08:00] VITALS: PULSE 96; O2SAT 96
[2025-06-02 08:50] VITALS: BP 143/87; PULSE 78; RESP 20; TEMP 98.5; O2SAT 96
--- NOTE | 2025-06-02 12:56 | DVHPN2 ---
Reviewed: Care Plan, H&P, Labs, Medications Changes from previous H/P or p: No Changes General: Per HPI Objective Vitals Vital Signs Date Time Temp Pulse Resp B/P (MAP) Pulse Ox O2 Delivery O2 Flow Rate FiO2 06/02/25 08:50 98.5 78 20 143/87 (105) 96 98.5 06/02/25 08:00 Room Air* 0 21 Intake/Output Intake and Output 06/02/25 07:00 Intake Total 1500 ml Output Total 550 ml Balance 950 ml Intake Oral 1500 ml Output Urine Total 550 ml # Voids 3 # Bowel Movements 2 General Appearance: Alert, Oriented X3, Cooperative HEENT: Atraumatic, PERRLA Lungs: Clear to auscultation, Normal air movement Cardiovascular: Normal S1, Normal S2 Abdomen: Normal bowel sounds, Soft, No tenderness, No hepatospenomegaly Genitourinary: Other (Urinary retention) Musculoskeletal: Normal sensory function, Normal motor function Neuro: Normal gait, Normal speech Skin: Dry, Intact Psych/Mental Status: Mental status NL, Mood NL Medications Current Medications Medications Dose Ordered Sig/[place] Route Start Time Stop Time Status Last Admin Dose Admin Acetaminophen/ Hydrocodone Bitart 1 tab Q4HP PRN PO 05/29/25 00:00 05/30/25 04:39 1 TAB Temazepam 15 mg QHSP PRN PO 05/29/25 00:00 05/29/25 21:34 15 MG Ondansetron HCl 4 mg Q4HP PRN IV 05/29/25 00:00 05/30/25 17:40 4 MG Acetaminophen 650 mg Q6HP PRN PO 05/29/25 00:00 Meropenem 50 ml @ 17 mls/hr Q8H IV 05/30/25 10:00 06/02/25 09:59 17 MLS/HR Diagnostic Test (Pha) 1 strip ACHS 05/30/25 11:30 06/02/25 11:01 1 STRIP Insulin Human Regular HS SC 05/30/25 22:00 06/01/25 21:19 6 UNITS Insulin Human Regular AC SC 05/30/25 11:30 06/02/25 11:46 9 UNITS Dextrose 50 ml UD PRN IV 05/30/25 08:45 Patient Own Medication 1 tab HS PO 05/30/25 22:00 UNV Patient Own Medication 30 mg DAILY PO 05/30/25 10:30 UNV Patient Own Medication 100 mg DAILY PRN PO 05/30/25 10:30 UNV Hydroxyzine Pamoate 50 mg Q6HP PRN PO 05/30/25 10:30 05/30/25 16:36 50 MG Atorvastatin Calcium 40 mg HS PO 05/30/25 22:00 06/01/25 21:19 40 MG Buspirone HCl 15 mg DAILY PO 05/31/25 10:00 06/02/25 09:59 15 MG Trazodone HCl 100 mg DAILY PRN PO 05/30/25 11:15 06/01/25 21:21 100 MG Laboratory Results Laboratory Tests 06/02/25 05:31 Chemistry Test 06/02/25 05: Calcium Level 9.4 mg/dL (8.7-10.4) Urinalysis Test 05/28/25 21:00 Urine Color Colorless (Yellow) Urine Clarity Turbid (Clear) H Urine pH 5.5 (5.0-9.0) Urine Specific [place] 1.018 (1.001-1.035) Urine Protein 1+ (Negative) H Urine Ketones Trace (Negative) Urine Blood Trace /uL (Negative) H Urine Nitrite Negative (Negative) Urine Bilirubin Negative (Negative) Urine Urobilinogen Normal mg/dL (Negative) Urine Leukocyte Esterase 2+ /uL (Negative) Urine RBC 1 /hpf (0 - 3) Urine WBC Clumps Present /hpf (None Seen) Urine Microscopic WBC 56 /HPF (0-3) H Urine Squamous Epithelial Cells None seen /hpf (<5) Urine Amorphous Crystals Few /hpf (None Seen) Urine Bacteria Few /hpf (None Seen) H Urine Glucose 4+ mg/dL (Normal) H Microbiology Microbiology Date/Time Source Procedure Growth Status 05/31/25 14:26 Blood Blood Culture - Preliminary NO GROWTH AFTER 24 HOURS OF INCUBATION. Resulted 05/29/25 16:40 Urine - [place] Urine Culture - Final Klebsiella pneumoniae Complete Assessment/Plan Assessment/Plan Impression: -sepsis -complicated cystitis -chronic urinary obstruction with self catheterization -obesity -history of frequent UTIs Plan: Events: Klebsiella pneumoniae in urine. Blood culture pending. -display antibiotic therapy to Meropenem as sole treatment -pain management -Kidney ultrasound: Negative for nephrolithiasis -repeat blood culture -repeat labs in a.m. Total time spent with patient discussing and formulating plan of care: 35 minutes. Plan discussed with: Patient Date of Service: Jun 01, 2025 Billing Provider: GUI VILLALBA DO Common Visit Codes: [id number] INP/OBS CARE(HIGH) GUI VILLALBA DO Jun 02, 2025 12:56
[2025-06-02] MEDS ORDERED: CIPR-173 PO (12:57)
--- NOTE | 2025-06-02 12:59 | DVHDS2 ---
Discharge Summary Date of Admission May 28, 2025 at 23:50 Date of Discharge: Jun 02, 2025 Labs/Diagnostic Data: Laboratory Results Test 06/02/25 10:52 06/02/25 05:31 05/28/25 21:07 05/28/25 21:00 POC Glucose 263 mg/dl (70-106) White Blood Count 12.0 10^3/uL (4.4-10.8) Red Blood Count 4.45 10^6/uL (4.5-5.90) Hemoglobin 12.2 g/dL (13.5-17.5) Hematocrit 35.9 % (41.0-53.0) Mean Corpuscular Volume 80.5 fL (80.0-100.0) Mean Corpuscular Hemoglobin 27.4 pg (28.0-32.0) Mean Corpuscular Hemoglobin Concent 34.1 g/dL (32.0-36.0) Red Cell Distribution Width 14.1 % (11.8-14.3) Platelet Count 570 10^3/uL (140-450) Mean Platelet Volume 6.4 fL (6.9-10.8) Neutrophils (%) (Auto) 73.7 % (37.0-80.0) Lymphocytes (%) (Auto) 17.7 % (10.0-50.0) Monocytes (%) (Auto) 6.7 % (0.0-12.0) Eosinophils (%) (Auto) 1.3 % (0.0-7.0) Basophils (%) (Auto) 0.6 % (0.0-2.0) Neutrophils # (Auto) 8.9 10 ^3/uL (1.6-8.6) Lymphocytes # (Auto) 2.1 10 ^3/uL (0.4-5.4) Monocytes # (Auto) 0.8 10 ^3/uL (0-1.3) Eosinophils # (Auto) 0.2 10 ^3/uL (0-0.8) Basophils # (Auto) 0.1 10 ^3/uL (0-0.2) Nucleated Red Blood Cells 0.0 % Sodium Level 139 mmol/L (136-145) Potassium Level 4.0 mmol/L (3.5-5.1) Chloride Level 102 mmol/L (98-107) Carbon Dioxide Level 25 mmol/L (20-31) Anion Gap 12 (5-15) Blood Urea Nitrogen 11 mg/dL (9-23) Creatinine 0.89 mg/dL (0.700-1.30) Glomerular Filtration Rate Calc 100 mL/min (>90) BUN/Creatinine Ratio 12.4 (10.0-20.0) Serum Glucose 253 mg/dL (74-106) Calcium Level 9.4 mg/dL (8.7-10.4) Troponin I High Sensitivity 4 ng/L (</=54) Urine Color Colorless (Yellow) Urine Clarity Turbid (Clear) Urine pH 5.5 (5.0-9.0) Urine Specific [place] 1.018 (1.001-1.035) Urine Protein 1+ (Negative) Urine Ketones Trace (Negative) Urine Blood Trace /uL (Negative) Urine Nitrite Negative (Negative) Urine Bilirubin Negative (Negative) Urine Urobilinogen Normal mg/dL (Negative) Urine Leukocyte Esterase 2+ /uL (Negative) Urine RBC 1 /hpf (0 - 3) Urine WBC Clumps Present /hpf (None Seen) Urine Microscopic WBC 56 /HPF (0-3) Urine Squamous Epithelial Cells None seen /hpf (<5) Urine Amorphous Crystals Few /hpf (None Seen) Urine Bacteria Few /hpf (None Seen) Urine Glucose 4+ mg/dL (Normal) Test 05/28/25 20:23 Hemoglobin A1c 9.4 % A1C (<5.7) Lactic Acid Level 1.6 mmol/L (0.4-2.0) B-Type Natriuretic Peptide 23.59 pg/mL (0-100) Other Laboratory Tests 06/02/25 05:31 Brief Hx & Hospital Course: Impression: -sepsis -complicated cystitis -chronic urinary obstruction with self catheterization -obesity -history of frequent UTIs Plan: Events: Klebsiella pneumoniae in urine. Blood culture pending. -display antibiotic therapy to Meropenem as sole treatment -pain management -Kidney ultrasound: Negative for nephrolithiasis -repeat blood culture -repeat labs in a.m. Total time spent with patient discussing and formulating plan of care: 35 minutes. discharged to home with oral Abx Condition at Discharge: Fair Final Diagnosis/Problems List see above Discharge Disposition: Home Discharge Instruct/Medications Diet: Cardiac 2g Na,low cholest Activity: No Restrictions, As Tolerated Scheduled Atorvastatin Calcium (Atorvastatin Calcium), 1 TAB PO DAILY, (Reported) Bupropion Hcl (Bupropion Hcl), 150 MG PO DAILY, (Reported) Buspirone Hcl (Buspirone Hcl), 30 MG PO DAILY, (Reported) Cephalexin (Keflex Capsule), 250 MG PO QID Ciprofloxacin Hcl (Cipro), 1 TAB PO BID Ibuprofen (Ibuprofen), PRN, (Reported) Sitagliptin Phosphate (Januvia), 1 TAB PO DAILY, (Reported) Tramadol Hcl (Tramadol Hcl), 50 MG PO TID, (Reported) Scheduled PRN Hydroxyzine Hcl (Hydroxyzine Hcl), 50 MG PO for ANXIETY, (Reported) Trazodone Hcl (Trazodone Hcl), 100 MG PO DAILY PRN for sleep, (Reported) Miscellaneous Medications Armodafinil (Armodafinil), 50 MG PO, (Reported) Glipizide (Glipizide), 5 MG PO, (Reported) Ibuprofen (Ibuprofen), 800 MG PO, (Reported) Melatonin ( Melatonin), 5 MG PO, (Reported) Metformin Hydrochloride (Metformin Hcl), 1,000 MG PO, (Reported) [Just Finished Cipro], (Reported) Discharge Statement: "Patient was advised to return to the ER or call 911 if any headaches, dizziness, shortness of breath, chest pain, abdominal pain, bleeding, fevers, or worsening of medical condition. Patient was counseled about treatment plan, medications, possible side effects, patientverbalized understanding. All questions were answered to the best of my ability. This discharge took greater then 30 minutes in planning, reviewing documentation, counseling the patient, and discussing with other team members." ASSESSMENT ASSESSMENT Assessment Date of Service: Jun 02, 2025 Billing Provider: GUI VILLALBA DO Common Visit Codes: [id number] DISCH DAY >30min GUI VILLALBA DO Jun 02, 2025 12:59
[2025-06-02 13:09] VITALS: BP 144/82; PULSE 78; RESP 20; TEMP 97.9; O2SAT 92
[2025-06-02 13:35] VITALS: BP 133/69; PULSE 98; RESP 19; TEMP 36.6; O2SAT 96
== END 2025-06-02 13:55 | disposition home or self-care (01) | DRG 872 ==
LOC: ER 18:47 → OVERFLOW 23:50 → CENTRAL 05-29 00:54
PROVIDERS: ADMIT Nurse Practitioner Acute Care; ATTEND Nurse Practitioner Acute Care
DX: A41.9 Sepsis, unspecified organism (principal); K52.9 Noninfective gastroenteritis and colitis, unspecified; N30.90 Cystitis, unspecified without hematuria; N13.9 Obstructive and reflux uropathy, unspecified; R73.9 Hyperglycemia, unspecified; E66.9 Obesity, unspecified; F17.210 Nicotine dependence, cigarettes, uncomplicated; Z87.440 Personal history of urinary (tract) infections; Z79.899 Other long term (current) drug therapy; Z68.32 Body mass index [BMI] 32.0-32.9, adult
CPT/HCPCS: 36415; 71045; 76775; 80048; 81001; 82962; 83036; 83605; 83880; 84484; 85025; 87040; 87077; 87086; 87088; 87186; 93005; 96365; G0378; J1335; J1815; J2185; J2405

== ENCOUNTER 2025-07-07 18:46 | Inpatient (IN) | payer OTHER, MEDICARE, MEDICAID ==
[~2025-07-07] VITALS: Ht 172.7 cm; Wt 95.1 kg
[~2025-07-07 18:46] MED LIST changes: +ARMO1TAB2 PO; +ATOR40TA52 PO; +BUPR-346 PO; +BUSP15TA60 PO; +CIPR-173 PO; +GLIP5TAB21 PO; +HYDR50TA69 PO; +IBUP-1456 PO; +MELA3TAB27 PO; +METF-371 PO; +SITA100T7 PO; +TRAM50TA2 PO; +TRAZ-228 PO
[2025-07-07] MEDS ORDERED: CEFEPIME 1GM/50ML 50 ML IV ONE (19:30)
[2025-07-07] MEDS ORDERED: LACTATED RINGER'S 2,050 ML IV ONE (19:30)
--- NOTE | 2025-07-07 19:40 | ED.PDOC ---
History of Present Illness HPI Comments 60-year-old, obese male presents with spouse from [facility] urgent care facility for chief complaint of flu-like symptoms. Patient endorses on having symptoms for the past 1-2 weeks. Symptoms include shortness of breaths, cough, congestion, body aches, and fever. He reports on facility sending him over, due to chest x-ray showing pneumonia in his left lungs and his blood work showing a anion gap of 16, WBC count of 16.7, and a lactic acid count of 4.7, and UA showing significant amounts of leukocyte esterase. Recent notable history of sepsis with hospital admission 1 month ago. Additional significant history of diabetes, appendectomy, exploratory laparotomy, self catheterization, and frequent UTIs. He denies any for acute symptoms. Chief Complaint: Shortness of Breath Time Seen by MD: 19:20 Primary Care Provider: DR MOLINA Reviewed Notes: Nurses Notes, Medications, Allergies Allergies: Coded Allergies: Sulfa Antibiotics (Verified Allergy, Unknown, 05/28/25) Home Meds Active Scripts Ciprofloxacin Hcl (Cipro) 500 Mg Tab, 1 TAB PO BID, #14 TAB Prov:GUI VILLALBA DO 06/02/25 Cephalexin (KEFLEX CAPSULE) 250 Mg Cp, 250 MG PO QID for 7 Days, #28 CAP 0 Refills Prov:DELVIS SANTIAGO MD 02/10/24 Reported Medications Atorvastatin Calcium (ATORVASTATIN CALCIUM) 40 Mg Tab, 1 TAB PO DAILY, #30 TAB 5 Refills 05/30/25 Ibuprofen (Ibuprofen) 800 Mg Tab, 800 MG PO for pain, MG 05/30/25 Trazodone Hcl (Trazodone Hcl) 100 Mg Tab, 100 MG PO DAILY PRN for sleep, MG 05/30/25 Melatonin (KP MELATONIN) 3 Mg Tab, 5 MG PO for sleep, TAB 05/30/25 Hydroxyzine Hcl (Hydroxyzine Hcl) 50 Mg Tab, 50 MG PO PRN for ANXIETY for 30 Days, MG 05/30/25 Buspirone Hcl (Buspirone Hcl) 15 Mg Tab, 30 MG PO DAILY for 30 Days 05/30/25 Bupropion Hcl (Bupropion Hcl) 100 Mg Tab, 150 MG PO DAILY for 30 Days, MG 05/30/25 Armodafinil (Armodafinil) 50 Mg Tab, 50 MG PO, TAB 05/30/25 Tramadol Hcl (Tramadol Hcl) 50 Mg Tab, 50 MG PO TID, MG 05/30/25 Sitagliptin Phosphate (Januvia) 100 Mg Tab, 1 TAB PO DAILY, #30 TAB 5 Refills 05/30/25 Metformin Hydrochloride (Metformin Hcl) 850 Mg Tab, 1000 MG PO for 30 Days, MG 05/30/25 Glipizide (Glipizide) 5 Mg Tab, 5 MG PO for 30 Days, MG 05/30/25 [Just Finished Cipro] No Conflict Check 04/10/12 Ibuprofen (Ibuprofen) 800 Mg Tab, PRN 04/10/12 Information Source: Patient, Spouse Mode of Arrival: Ambulatory Severity: Moderate Timing: Weeks Duration: Since onset Prehospital treatment: Other (See HPI) Past Medical History PAST MEDICAL HISTORY: DM, UTI'S Surgical History: Appendectomy Surgical History (Other): Exploratory laparotomy Family History Family History: No family hx of Cancer, No family hx of Heart brian Social History Smoker: Cigarettes, Less Than 1 Pack/Day Alcohol: Rarely Drugs: Denies Drug Use Lives In: Home All Other Systems: Reviewed and Negative (Comprehensive review of systems are negative unless stated in HPI) Physical Exam General Appearance: No Apparent Distress, Obese HEENT: Normal ENT Inspection, Pharynx Normal, TMs Normal Neck: Full Range of Motion, Non-Tender, Normal, Normal Inspection Respiratory: Chest Non-Tender, Expiration (Expiratory rhonchi to left lower lung ), No Accessory Muscle Use, No Respiratory Distress, Rhonchi (left lower lung, expiratory ) Cardiovascular: No Edema, No JVD, No Murmur, No Gallop, Normal Peripheral Pulses, Regular Rate/Rhythm Breast Exam: Deferred Gastrointestinal: No Organomegaly, Non Tender, No Pulsatile Mass, Normal Bowel Sounds, Soft Genitalia: Deferred Pelvic: Deferred Rectal: Deferred Extremities: No calf tenderness, Normal capillary refill, Normal inspection, Normal range of motion, Non-tender, No pedal edema Musculoskeletal : Apperance: Normal Neurologic: Alert, document review specialist II-XII nml as Tested, No Motor Deficits, Normal Affect, Normal Mood, No Sensory Deficits Cerebellar Function: Normal Reflexes: Normal Skin: Dry, Normal Color, Warm Lymphatic: No Adenopathy Was a procedure done? Was a procedure done?: No EKG EKG : Pulse Rate (adult): 107 [place]: RAD Cardiac Rhythm: ST Block: None Hypertrophy: None ST: Normal Differential Dx Considerations may include: Pneumonia, URI, viral, PE, [place], ACS, among others X-Ray, Labs, Meds, VS Vital Signs Date Time Temp Pulse Resp B/P (MAP) Pulse Ox O2 Delivery O2 Flow Rate FiO2 07/07/25 22:48 98.3 114 22 121/68 (85) 98 98.3 07/07/25 21:40 22 100 Room Air* 0 21 07/07/25 21:07 99.5 110 22 151/86 (107) 98 99.5 07/07/25 21:07 22 98 Room Air* 0 21 07/07/25 19:47 107 07/07/25 18:57 107 07/07/25 18:47 98.7 109 15 111/59 97 98.7 Lab Test 07/07/25 22:53 07/07/25 22:30 07/07/25 21:29 07/07/25 19:37 Range/Units Influenza Type A Antigen Pending Influenza Type B Antigen Pending SARS-CoV-2 Antigen (Rapid) Pending Lactic Acid Level 4.5 *H 3.5 *H 0.4-2.0 mmol/L POC Glucose 165 H 70-106 mg/dl White Blood Count 13.4 H 4.4-10.8 10^3/uL Red Blood Count 4.41 L 4.5-5.90 10^6/uL Hemoglobin 11.9 L 13.5-17.5 g/dL Hematocrit 35.4 L 41.0-53.0 % Mean Corpuscular Volume 80.3 80.0-100.0 fL Mean Corpuscular Hemoglobin 27.0 L 28.0-32.0 pg Mean Corpuscular Hemoglobin Concent 33.6 32.0-36.0 g/dL Red Cell Distribution Width 15.7 H 11.8-14.3 % Platelet Count 312 140-450 10^3/uL Mean Platelet Volume 6.6 L 6.9-10.8 fL Neutrophils (%) (Auto) 79.0 37.0-80.0 % Lymphocytes (%) (Auto) 12.4 10.0-50.0 % Monocytes (%) (Auto) 7.7 0.0-12.0 % Eosinophils (%) (Auto) 0.2 0.0-7.0 % Basophils (%) (Auto) 0.7 0.0-2.0 % Neutrophils # (Auto) 10.6 H 1.6-8.6 10 ^3/uL Lymphocytes # (Auto) 1.7 0.4-5.4 10 ^3/uL Monocytes # (Auto) 1.0 0-1.3 10 ^3/uL Eosinophils # (Auto) 0 0-0.8 10 ^3/uL Basophils # (Auto) 0.1 0-0.2 10 ^3/uL Nucleated Red Blood Cells 0.0 % Sodium Level 131 L 136-145 mmol/L Potassium Level 4.0 3.5-5.1 mmol/L Chloride Level 93 L 98-107 mmol/L Carbon Dioxide Level 23 20-31 mmol/L Anion Gap 15 5-15 Blood Urea Nitrogen 19 9-23 mg/dL Creatinine 1.38 H 0.700-1.30 mg/dL Glomerular Filtration Rate Calc 59 >90 mL/min BUN/Creatinine Ratio 13.8 10.0-20.0 Serum Glucose 172 H 74-106 mg/dL Calcium Level 9.7 8.7-10.4 mg/dL Total Bilirubin 0.8 0.2-1.0 mg/dL Aspartate Amino Transferase (AST) 17 13-40 U/L Alanine Aminotransferase (ALT) 18 7-40 U/L Alkaline Phosphatase 100 46-116 U/L Total Protein 7.6 5.7-8.2 g/dL Albumin 4.5 3.2-4.8 g/dL Current Medications Medications (Trade) Dose Ordered Sig/[place] Route Start Time Stop Time Status Last Admin Vancomycin HCl 250 ml @ 250 mls/hr ONCE ONCE IV 07/07/25 19:30 07/07/25 20:29 DC 07/07/25 22:18 Lactated Ringer's 2,050 ml @ 2,050 mls/hr ONCE ONCE IV 07/07/25 19:30 07/07/25 20:29 DC 07/07/25 21:10 Cefepime HCl 50 ml @ 50 mls/hr ONCE ONCE IV 07/07/25 21:00 07/07/25 21:59 DC 07/07/25 21:11 Acetaminophen/ Hydrocodone Bitart ([place] 10/325MG Tab) 1 tab ONCE ONCE PO 07/07/25 21:30 07/07/25 21:31 DC 12/7/25 21:34 Albuterol (Ventolin Medneb) 2.5 mg ONCE ONCE NEB 07/07/25 21:30 07/07/25 21:31 DC 07/07/25 21:40 [facility] [id number] [place] [id number] Ph: [phone] DIAGNOSTIC IMAGING Diagnostic Imaging Report : [id number] Signed PATIENT: OLIVIA BARKER DARRON ACCT: [id number] UNIT: [id number] : 1965 LOC: ER ROOM / BED: / AGE / SEX: 60 / M ADM STATUS: REG ER SERVICE 18 ORDERING PHYSICIAN: FARAZ GONZALEZ MD PROCEDURE(s): CXRP - CHEST PORTABLE REASON: fever ORDER NUMBER(s): [id number], ACCESSION NUMBER(s): [id number] INDICATION: fever TECHNIQUE: Frontal view of the chest. COMPARISON: XY CHEST XRAY 1 VIEW on DOS: 05/28/25 FINDINGS/IMPRESSION: The lungs are clear. The cardiomediastinal silhouette is unremarkable. No pleural effusion or pneumothorax. No acute osseous abnormality. ATED BY: KARTHIKEYAN STRATTON MD DICTATED DATE/TIME: 07/07/251954 SIGNED BY: KARTHIKEYAN STRATTON MD SIGNED DATE/TIME: 07/07/251954 CC: Time of 1ST Reevaluation: 19:50 Reevaluation 1ST: Unchanged Patient Education/Counseling: Diagnosis, Treatment, Prognosis, Need For Follow Up Family Education/Counseling: No Family Present Comments This is a patient who was sent in by [facility] for pneumonia and sepsis. He does meet sepsis criteria. Sepsis protocol initiated immediately. Patient is hemodynamically stable however, he is feeling weak, diaphoretic and sob. He will be admitted for sepsis of unknown etiology. Our chest x-ray does not show pneumonia at this time. Despite of the fluids, patient's lactic acid actually increased by one. I spoke to [facility] EP RP Dr. Berger who will authorize admission for here. The case #[id number] Additional Information Previous visits reviewed: May 28, 2025 encounter for complicated UTI Labs ordered: Lactic acid with reflex, UA, CMP, CBC, blood culture, Accu-Chek, EKG Images reviewed: Chest x-ray Additional historian is interviewed: n/a SEPSIS Sepsis Screen Date sepsis recognized/suspect: Jul 07, 2025 Time Sepsis recognized/suspect: 1848 Recent Procedure: No On Antibiotic Therapy: No Respiratory Rate >20: No Heart Rate >90: No Temp<36 C (96.8 F) or >38.3 C: No SBP <90 or MAP <65 mmHG: No New Acute Mental Status Change: No Is the patient on CPAP, BIPAP,: No Physician Orders Electrocardigram (07/07/25 18:51) Urinalysis (07/07/25 19:19) Chest Portable (07/07/25 19:19) Accucheck (07/07/25 19:19) Lactated Ringer's (07/07/25 19:30) Blood Culture (07/07/25 19:19) Notify Md If Map <65 Or Bp<90 (07/07/25 19:19) If Map<65 Start Vasopressor (07/07/25 19:19) Sepsis Reassesment After Fluid (07/07/25 20:19) Accucheck (07/07/25 19:19) Notify Md If Map <65 Or Bp<90 (07/07/25 19:19) If Map<65 Start Vasopressor (07/07/25 19:19) Sepsis Reassesment After Fluid (07/07/25 20:19) Rapid Influenza A&B (07/07/25 22:46) Covid19 Antigen [place] (07/07/25 ) Respiratory Syncytial Virus Ag (07/07/25 22:46) Vital Signs Date Time Temp Pulse Resp B/P (MAP) Pulse Ox O2 Delivery O2 Flow Rate FiO2 07/07/25 22:48 98.3 114 22 121/68 (85) 98 98.3 07/07/25 21:40 22 100 Room Air* 0 21 07/07/25 21:07 99.5 110 22 151/86 (107) 98 99.5 07/07/25 21:07 22 98 Room Air* 0 21 07/07/25 19:47 107 07/07/25 18:57 107 07/07/25 18:47 98.7 109 15 111/59 97 98.7 Laboratory Tests Test 07/07/25 19:37 07/07/25 22:30 Lactic Acid Level 3.5 mmol/L (0.4-2.0) *H 4.5 mmol/L (0.4-2.0) *H White Blood Count 13.4 10^3/uL (4.4-10.8) H Medications Medications Dose Ordered Sig/[place] Route Start Time Stop Time Status Last Admin Dose Admin Acetaminophen/ Hydrocodone Bitart 1 tab ONCE ONCE PO 07/07/25 21:30 07/07/25 21:31 DC 07/07/25 21:34 Albuterol 2.5 mg ONCE ONCE NEB 07/07/25 21:30 07/07/25 21:31 DC 07/07/25 21:40 Cefepime HCl 50 ml @ 50 mls/hr ONCE ONCE IV 07/07/25 21:00 07/07/25 21:59 DC 07/07/25 21:11 Lactated Ringer's 2,050 ml @ 2,050 mls/hr ONCE ONCE IV 07/07/25 19:30 07/07/25 20:29 DC 07/07/25 21:10 Vancomycin HCl 250 ml @ 250 mls/hr ONCE ONCE IV 07/07/25 19:30 07/07/25 20:29 DC 07/07/25 22:18 Reassessment Post Fluid SEPSIS FOCUS EXAM(REASSESSMENT pt is feeling improved, clear mentation, normal BP 2050ml LR given Date of Reassessment: Jul 07, 2025 Time of Reassessment: 20:10 Temperature: 98.7 Systolic BP: 111 Blood Pressure Time: 18:47 Respiration: 15 Oxygen Saturation: 97 Pulse rate: 107 Pulse Location: Radial Pulse Strength: Normal Capillary Refill Exam: < 3 seconds Skin Temperature: Warm Skin Tugor: WNL Skin Color: WNL Fingernail Color: WNL Departure 1 Departure Time of Disposition: 22:13 Impression: Primary Impression: Pneumonia Additional Impressions: Sepsis Renal failure Disposition: ADMITTED INPATIENT Admit to: [facility] Condition: Serious Discharged With: Self, Relative Critical Care Note Critical Care Time?: Yes (55 min-critical care time only) Critical care comment: Due to concerns for patients condition deteriorating, the care required my highest level of attention and readiness to intervene. I assessed the patient, reviewed the medical records, ordered the appropriate tests and treatments, then reassessed for results and responsiveness. I communicated with medical personnel and consultants and formulated a plan of care. Total critical care time excludes any procedures Stability Stability form required: No Heart Score Heart Score: Heart Score Response (Comments) Value History Moderate Suspicious 1 EKG Normal 0 Age 45-64 1 Risk Factors 1 or 2 risk factors 1 Troponin N/A 0 Total 3 I personally scribed for FARAZ GONAZLEZ MD (PETERLIN) on 07/07/25 at 19:40. Electronically submitted by Vazquez Melton ([email or web address]). I personally scribed for FARAZ GONZALEZ MD (CAROL) on 07/07/25 at 19:41. Electronically submitted by Vazquez Melton ([email or web address]). I personally scribed for FARAZ GONZALEZ MD (PETERLIN) on 07/07/25 at 19:47. Electronically submitted by Vazquez Melton ([email or web address]). I personally scribed for FARAZ GONZALEZ MD (PETERLIN) on 07/07/25 at 19:49. Electronically submitted by Vazquez Melton ([email or web address]). I personally scribed for FARAZ GONZALEZ MD (PETERLIN) on 07/07/25 at 20:08. Electronically submitted by Vazquez Melton ([email or web address]). FARAZ GONZALEZ MD Jul 07, 2025 19:40
--- NOTE | 2025-07-07 19:57 | DVH ---
INDICATION: fever TECHNIQUE: Frontal view of the chest. COMPARISON: XY CHEST XRAY 1 VIEW on DOS: 05/28/25 FINDINGS/IMPRESSION: The lungs are clear. The cardiomediastinal silhouette is unremarkable. No pleural effusion or pneumothorax. No acute osseous abnormality.
[2025-07-07 20:02] LABS: Hematocrit 35.4 % (41.0-53.0); Hemoglobin 11.9 g/dL (13.5-17.5); Mean Corpuscular Hemoglobin 27.0 pg (28.0-32.0); Mean Corpuscular Volume 80.3 fL (80.0-100.0); Nucleated Red Blood Cells % 0.0 %
[2025-07-07 20:24] LABS: Alanine Aminotransferase 18 U/L (7-40); Albumin 4.5 g/dL (3.2-4.8); Alkaline Phosphatase 100 U/L (46-116); Anion Gap 15 (5-15); BUN/Creatinine Ratio 13.8 (10.0-20.0); Blood Urea Nitrogen 19 mg/dL (9-23); Calcium 9.7 mg/dL (8.7-10.4); Carbon Dioxide 23 mmol/L (20-31); Potassium 4.0 mmol/L (3.5-5.1); Total Protein 7.6 g/dL (5.7-8.2)
[2025-07-07 20:25] LABS: Bilirubin, Total 0.8 mg/dL (0.2-1.0); Chloride 93 mmol/L (98-107); Glucose 172 mg/dL (74-106); Sodium 131 mmol/L (136-145)
[2025-07-07 20:37] LABS: Lactic Acid w/Reflex 3.5 mmol/L (0.4-2.0)
[2025-07-07] MEDS: LACTATED RINGER'S 2,050 ML IV ONE (21:10)
[2025-07-07] MEDS: CEFEPIME 1GM/50ML 50 ML IV ONE (21:11)
[2025-07-07] MEDS: HYDROcodone-ACET 10/325MG TAB PO ONE (21:34)
[2025-07-07] MEDS: ALBUTEROL SULF 2.5 MG/0.5ML(0.5%) NEB SOLN NEB ONE (21:40)
[2025-07-07] MEDS: VANCOMYCIN 1GM/250ML KIT 250 ML IV ONE (22:18)
[2025-07-07 23:49] LABS: COVID19 ANTIGEN SOFIA FIA NEGATIVE (NEGATIVE)
[2025-07-08] VITALS (8 sets, daily range): BP systolic 117–141; BP diastolic 70–74; PULSE 90–104; RESP 17–20; TEMP 97.8–98.4; O2SAT 96–99
[2025-07-08] MEDS ORDERED: ONDANSETRON HCL 4 MG/2 ML VIAL IV PRN (00:15)
[2025-07-08] MEDS ORDERED: DEXTROSE (50%) 50ML SYRG IV PRN (00:15)
[2025-07-08] MEDS ORDERED: NITROGLYCERIN 0.4 MG SL TAB SL PRN (00:15)
[2025-07-08] MEDS ORDERED: VANCOMYCIN PER PHARMACY 0 MG IV SCH (00:15)
[2025-07-08] MEDS ORDERED: MORPHINE SULFATE INJ 2 MG/ml SYRG IV PRN (00:15)
[2025-07-08 01:10] LABS: Lactic Acid w/Reflex 4.0 mmol/L (0.4-2.0)
--- NOTE | 2025-07-08 01:19 | DVHHP2 ---
History of Present Illness Reason for Visit: Fever History of Present Illness 52-year-old male presents for evaluation of fever. Patient reports a one-week of shortness for breath with associated cough with white phlegm as well as body aches and fever. He also reports dysuria. He reports a history of recurrent UTIs. Denies chest pain. No abdominal pain. Past Medical History Diabetes mellitus, UTIs Past Surgical History Appendectomy, ex lap Family History Noncontributory Smoke: <1 pack per day ALCOHOL: occassional Drugs: None Lives: with Family Review of Systems Review of Systems Review of systems are currently negative otherwise addressed in HPI. Allergies: Coded Allergies: Sulfa Antibiotics (Verified Allergy, Unknown, 05/28/25) Medications Current Medications Medications Dose Ordered Sig/[place] Route Start Time Stop Time Status Last Admin Dose Admin Cefepime HCl 50 ml @ 12.5 mls/hr Q12HR IV 07/08/25 10:00 Vancomycin HCl 0 ml @ 0 mls/hr PER PHARMACY IV 07/08/25 00:15 UNV Guaifenesin/ Dextromethorphan 10 ml Q4HP PRN PO 07/08/25 00:15 Albuterol 2.5 mg Q6HPRN PRN NEB 07/08/25 00:15 Atorvastatin Calcium 40 mg HS PO 07/08/25 22:00 Diagnostic Test (Pha) 1 strip ACHS 07/08/25 07:00 Insulin Human Regular ACHS SC 07/08/25 07:00 Dextrose 50 ml UD PRN IV 07/08/25 00:15 Ondansetron HCl 4 mg Q4HP PRN IV 07/08/25 00:15 Acetaminophen 650 mg Q6HP PRN PO 07/08/25 00:15 Nitroglycerin 0.4 mg Q5MINP PRN SL 07/08/25 00:15 Morphine Sulfate 2 mg Q30M PRN IV 07/08/25 00:15 Exam Vital Signs Vital Signs Date Time Temp Pulse Resp B/P (MAP) Pulse Ox O2 Delivery O2 Flow Rate FiO2 07/08/25 00:44 97.8 104 19 125/70 97 0.0 21 97.8 07/07/25 21:40 Room Air* Exam Gen: 60-year-old male in mild distress Skin: Warm, dry, normal color and texture, no rash. HEENT: Normocephalic atraumatic, mucous membranes moist and pink. Neck: Cervical and supraclavicular nodes normal without enlargement, trachea is midline, thyroid gland is normal without masses. Pulmonary: Clear to auscultation and percussion bilaterally. Cardiac: Regular rate and rhythm. No murmur Abdomen: Soft, nontender, nondistended, bowel sounds present all 4 quadrants, no guarding, no rigidity, no organomegaly. Extremities: No cyanosis, clubbing, no edema Neuro: Cranial nerves II through XII grossly intact, normal affect and speech, no focal motor deficits. Labs/Xrays ORDERING PHYSICIAN: FARAZ GONZALEZ MD PROCEDURE(s): CXRP - CHEST PORTABLE REASON: fever ORDER NUMBER(s): [id number], ACCESSION NUMBER(s): [id number] INDICATION: fever TECHNIQUE: Frontal view of the chest. COMPARISON: XY CHEST XRAY 1 VIEW on DOS: 05/28/25 FINDINGS/IMPRESSION: The lungs are clear. The cardiomediastinal silhouette is unremarkable. No pleural effusion or pneumothorax. No acute osseous abnormality. ATED BY: KARTHIKEYAN ARROYO MD Labs Test 07/08/25 00:34 07/07/25 22:53 07/07/25 21:29 07/07/25 19:37 Range/Units Lactic Acid Level 4.0 *H 0.4-2.0 mmol/L Influenza Type A Antigen Negative Negative Influenza Type B Antigen Negative Negative SARS-CoV-2 Antigen (Rapid) Negative NEGATIVE POC Glucose 165 H 70-106 mg/dl White Blood Count 13.4 H 4.4-10.8 10^3/uL Red Blood Count 4.41 L 4.5-5.90 10^6/uL Hemoglobin 11.9 L 13.5-17.5 g/dL Hematocrit 35.4 L 41.0-53.0 % Mean Corpuscular Volume 80.3 80.0-100.0 fL Mean Corpuscular Hemoglobin 27.0 L 28.0-32.0 pg Mean Corpuscular Hemoglobin Concent 33.6 32.0-36.0 g/dL Red Cell Distribution Width 15.7 H 11.8-14.3 % Platelet Count 312 140-450 10^3/uL Mean Platelet Volume 6.6 L 6.9-10.8 fL Neutrophils (%) (Auto) 79.0 37.0-80.0 % Lymphocytes (%) (Auto) 12.4 10.0-50.0 % Monocytes (%) (Auto) 7.7 0.0-12.0 % Eosinophils (%) (Auto) 0.2 0.0-7.0 % Basophils (%) (Auto) 0.7 0.0-2.0 % Neutrophils # (Auto) 10.6 H 1.6-8.6 10 ^3/uL Lymphocytes # (Auto) 1.7 0.4-5.4 10 ^3/uL Monocytes # (Auto) 1.0 0-1.3 10 ^3/uL Eosinophils # (Auto) 0 0-0.8 10 ^3/uL Basophils # (Auto) 0.1 0-0.2 10 ^3/uL Nucleated Red Blood Cells 0.0 % Sodium Level 131 L 136-145 mmol/L Potassium Level 4.0 3.5-5.1 mmol/L Chloride Level 93 L 98-107 mmol/L Carbon Dioxide Level 23 20-31 mmol/L Anion Gap 15 5-15 Blood Urea Nitrogen 19 9-23 mg/dL Creatinine 1.38 H 0.700-1.30 mg/dL Glomerular Filtration Rate Calc 59 >90 mL/min BUN/Creatinine Ratio 13.8 10.0-20.0 Serum Glucose 172 H 74-106 mg/dL Calcium Level 9.7 8.7-10.4 mg/dL Total Bilirubin 0.8 0.2-1.0 mg/dL Aspartate Amino Transferase (AST) 17 13-40 U/L Alanine Aminotransferase (ALT) 18 7-40 U/L Alkaline Phosphatase 100 46-116 U/L Total Protein 7.6 5.7-8.2 g/dL Albumin 4.5 3.2-4.8 g/dL SEPSIS Sepsis Screen Date sepsis recognized/suspect: Jul 07, 2025 Time Sepsis recognized/suspect: 2106 Recent Procedure: No On Antibiotic Therapy: Yes Respiratory Rate >20: Yes Heart Rate >90: Yes Temp<36 C (96.8 F) or >38.3 C: No SBP <90 or MAP <65 mmHG: No New Acute Mental Status Change: No Is the patient on CPAP, BIPAP,: No Physician Orders Electrocardigram (07/07/25 18:51) Urinalysis (07/07/25 19:19) Chest Portable (07/07/25 19:19) Accucheck (07/07/25 19:19) Lactated Ringer's (07/07/25 19:30) Blood Culture (07/07/25 19:19) Notify Md If Map <65 Or Bp<90 (07/07/25 19:19) If Map<65 Start Vasopressor (07/07/25 19:19) Sepsis Reassesment After Fluid (07/07/25 20:19) Accucheck (07/07/25 19:19) Notify Md If Map <65 Or Bp<90 (07/07/25 19:19) If Map<65 Start Vasopressor (07/07/25 19:19) Sepsis Reassesment After Fluid (07/07/25 20:19) Communication Order (07/08/25 00:09) Urine Bacterial Culture (07/08/25 00:09) Cefepime 1gm/50ml (Maxipime 1gm/50ml) (07/08/25 10:00) Vancomycin Per Pharmacy (07/08/25 00:15) Guaifenesin-Dextromet Liquid (Robitussin (07/08/25 00:15) Albuterol Medneb (Ventolin Medneb) (07/08/25 00:15) Atorvastatin (Lipitor) (07/08/25 22:00) Basic Metabolic Panel (07/09/25 04:00) Glucose Blood (Accu-Chek Comfort Curve T (07/08/25 07:00) Insulin R (Human) (Insulin R) (07/08/25 07:00) Dextrose 50% Syringe (07/08/25 00:15) Admit (07/08/25 00:09) Ondansetron Hcl (Zofran) (07/08/25 00:15) Complete Blood Count (07/09/25 04:00) Cardiac Diet-2gna,Lofat,Lochol (07/08/25 Breakfast) Condition: Fair (07/08/25 00:09) Acetaminophen Tablet (Tylenol Tablet) (07/08/25 00:15) Bedrest With Bathroom Privileg (07/08/25 00:09) Nitroglycerin Sublingual (Ntrostat Subli (07/08/25 00:15) Morphine Sulfate Injection (07/08/25 00:15) Stat Ekg For Chest Pain (07/08/25 00:09) Notify Of Changes From Base (07/08/25 00:09) Negative Checker For 24 Hours (07/08/25 00:09) Emergency Dysrhythmia Protocol (07/08/25 00:09) Rhythm Strips Once Every Shift (07/08/25 00:09) Oxygen By Nasal Cannula (07/08/25 00:09) Urinalysis (07/08/25 01:15) Urine Bacterial Culture (07/08/25 01:15) Vital Signs Date Time Temp Pulse Resp B/P (MAP) Pulse Ox O2 Delivery O2 Flow Rate FiO2 07/08/25 00:44 97.8 104 19 125/70 97 0.0 21 97.8 07/07/25 23:40 97.8 104 19 125/70 (88) 97 97.8 07/07/25 23:10 98.3 110 20 103/70 (81) 97 98.3 07/07/25 22:48 98.3 114 22 121/68 (85) 98 98.3 07/07/25 21:40 22 100 Room Air* 0 21 07/07/25 21:07 99.5 110 22 151/86 (107) 98 99.5 07/07/25 21:07 22 98 Room Air* 0 21 07/07/25 19:47 107 07/07/25 18:57 107 07/07/25 18:47 98.7 109 15 111/59 97 98.7 Laboratory Tests Test 07/07/25 19:37 07/07/25 22:30 07/08/25 00:34 Lactic Acid Level 3.5 mmol/L (0.4-2.0) *H 4.5 mmol/L (0.4-2.0) *H 4.0 mmol/L (0.4-2.0) *H White Blood Count 13.4 10^3/uL (4.4-10.8) H Medications Medications Dose Ordered Sig/[place] Route Start Time Stop Time Status Last Admin Dose Admin Acetaminophen/ Hydrocodone Bitart 1 tab ONCE ONCE PO 07/07/25 21:30 07/07/25 21:31 DC 07/07/25 21:34 1 TAB Albuterol 2.5 mg ONCE ONCE NEB 07/07/25 21:30 07/07/25 21:31 DC 07/07/25 21:40 2.5 MG Cefepime HCl 50 ml @ 50 mls/hr ONCE ONCE IV 07/07/25 21:00 07/07/25 21:59 DC 07/07/25 21:11 50 MLS/HR Lactated Ringer's 2,050 ml @ 2,050 mls/hr ONCE ONCE IV 07/07/25 19:30 07/07/25 20:29 DC 07/07/25 21:10 2,050 MLS/HR Vancomycin HCl 250 ml @ 250 mls/hr ONCE ONCE IV 07/07/25 19:30 07/07/25 20:29 DC 07/07/25 22:18 250 MLS/HR Reassessment Post Fluid Date of Reassessment: Jul 07, 2025 Time of Reassessment: 20:10 Temperature: 98.7 Systolic BP: 111 Blood Pressure Time: 18:47 Respiration: 15 Oxygen Saturation: 97 Pulse rate: 107 Pulse Location: Radial Pulse Strength: Normal Capillary Refill Exam: < 3 seconds Skin Temperature: Warm Skin Tugor: WNL Skin Color: WNL Fingernail Color: WNL Assessment/Plan Assessment/Plan Assessment Sepsis Possible UTI Acute pneumonitis Acute kidney injury Diabetes mellitus Leukocytosis Plan Admit the patient to telemetry to the hospitalist Cefepime/vancomycin UA/urine bacterial culture pending Blood cultures pending Continue treatment per orders. Plan discussed with: Patient My Orders Orders - CHARLETTE MCCAULEY AGACNThierno Procedure Category Date Status Time Communication Order ORDERS 07/08/25 Transmitted 00:09 Urine Bacterial MIGUEL 07/08/25 Logged Culture 00:09 Cefepime 1gm/50ml PHA 07/08/25 In Process (Maxipime 1gm/50ml) 10:00 Vancomycin Per PH[facility] 07/08/25 Pending Pharmacy 00:15 Guaifenesin-Dextromet [facility] 07/08/25 In Process Liquid (Robitussin 00:15 Albuterol Medneb [facility] 07/08/25 In Process (Ventolin Medneb) 00:15 Atorvastatin (Lipitor) [facility] 07/08/25 In Process 22:00 Basic Metabolic Panel LAB 07/09/25 Verified 04:00 Glucose Blood [facility] 07/08/25 In Process (Accu-Chek Comfort 07:00 Insulin R (Human) [facility] 07/08/25 In Process (Insulin R) 07:00 Dextrose 50% Syringe [facility] 07/08/25 In Process 00:15 Admit ADMIT 07/08/25 Transmitted 00:09 Ondansetron Hcl [facility] 07/08/25 In Process (Zofran) 00:15 Complete Blood Count LAB 07/09/25 Verified 04:00 Cardiac DIET 07/08/25 Transmitted Diet-2gna,Lofat,Lochol Breakfast Condition: Fair [facility] 07/08/25 In Process 00:09 Acetaminophen Tablet [facility] 07/08/25 In Process (Tylenol Tablet) 00:15 Bedrest With Bathroom [facility] 07/08/25 In Process Privileg 00:09 Nitroglycerin [facility] 07/08/25 In Process Sublingual (Ntrostat 00:15 Morphine Sulfate [facility] 07/08/25 In Process Injection 00:15 Stat Ekg For Chest [facility] 07/08/25 In Process Pain 00:09 Notify Of Changes [facility] 07/08/25 In Process From Base 00:09 Negative Checker For [facility] 07/08/25 In Process 24 Hours 00:09 Emergency Dysrhythmia [facility] 07/08/25 In Process Protocol 00:09 Rhythm Strips Once [facility] 07/08/25 In Process Every Shift 00:09 Oxygen By Nasal RT 07/08/25 Transmitted Cannula 00:09 Urinalysis LAB 07/08/25 Transmitted 01:15 Urine Bacterial [facility] 07/08/25 Transmitted Culture 01:15 Date of Service: Jul 08, 2025 Billing Provider: CHARLETTE MCCAULEY Common Visit Codes: [id number] INP/OBS CARE (HIGH) CHARLETTE MCCAULEY Jul 08, 2025 01:19
[2025-07-08] MEDS: InsuLIN REG 1unit/0.01ml Soln (100units/ml) SC SCH (06:09)
[2025-07-08] MEDS: ACCU-CHEK COMFORT CURVE STRIP VI SCH (06:12)
[2025-07-08 09:32] LABS: Urine Protein, UAD TRACE (Negative); Urine WBC Clumps PRESENT /hpf (None Seen)
[2025-07-08] MEDS: CEFEPIME 1GM/50ML 50 ML IV SCH (09:59)
[2025-07-08 10:27] LABS: Hepatitis B Surface Antigen Negative (Negative)
[2025-07-08 10:45] LABS: Hepatitis C Antibody Negative (Negative)
[2025-07-08] MEDS: SODIUM CHLORIDE 0.9% 1,000 ML IV SCH (11:30)
--- NOTE | 2025-07-08 12:34 | DVHPN2 ---
Subjective PATIENT CONTINUES TO REPORT HAVING GENERALIZED WEAKNESS. Reviewed: Care Plan, H&P, Labs, Medications, Previous Orders Changes from previous H/P or p: No Changes General: Per HPI Objective Vitals Vital Signs Date Time Temp Pulse Resp B/P (MAP) Pulse Ox O2 Delivery O2 Flow Rate FiO2 07/08/25 09:43 97 Nasal Cannula 2.0 07/08/25 09:43 28 07/08/25 08:36 98.0 100 20 134/74 (94) 98.0 Intake/Output Intake and Output 07/08/25 07:00 Intake Total 2350 ml Balance 2350 ml Intake IV Total 2350 ml General Appearance: Alert, Oriented X3, Cooperative, mild distress HEENT: Atraumatic, PERRLA Cardiovascular: Normal S1, Normal S2 Abdomen: Normal bowel sounds, Soft, No tenderness, No hepatospenomegaly Genitourinary: No Apparent Abnormalities (Zabala catheter with sediment) Musculoskeletal: Normal sensory function, Normal motor function Extremities: No clubbing, No cyanosis Neuro: Normal gait, Normal speech Skin: Dry, Intact Psych/Mental Status: Mental status NL, Mood NL Medications Current Medications Medications Dose Ordered Sig/[place] Route Start Time Stop Time Status Last Admin Dose Admin Vancomycin HCl 0 ml @ 0 mls/hr PER PHARMACY IV 07/08/25 00:15 Guaifenesin/ Dextromethorphan 10 ml Q4HP PRN PO 07/08/25 00:15 Albuterol 2.5 mg Q6HPRN PRN NEB 07/08/25 00:15 Atorvastatin Calcium 40 mg HS PO 07/08/25 22:00 Diagnostic Test (Pha) 1 strip ACHS 07/08/25 07:00 07/08/25 11:43 1 STRIP Insulin Human Regular ACHS SC 07/08/25 07:00 07/08/25 11:49 6 UNITS Dextrose 50 ml UD PRN IV 07/08/25 00:15 Ondansetron HCl 4 mg Q4HP PRN IV 07/08/25 00:15 Acetaminophen 650 mg Q6HP PRN PO 07/08/25 00:15 Nitroglycerin 0.4 mg Q5MINP PRN SL 07/08/25 00:15 Morphine Sulfate 2 mg Q30M PRN IV 07/08/25 00:15 Sodium Chloride 1,000 ml @ 100 mls/hr Q10H IV 07/08/25 11:30 Meropenem 50 ml @ 17 mls/hr Q8HR IV 07/08/25 14:00 Laboratory Results Laboratory Tests 07/07/25 19:37 Chemistry Test 07/07/25 19:37 Albumin 4.5 g/dL (3.2-4.8) Calcium Level 9.7 mg/dL (8.7-10.4) Total Protein 7.6 g/dL (5.7-8.2) LFT Test 07/07/25 19:37 Alanine Aminotransferase (ALT) 18 U/L (7-40) Alkaline Phosphatase 100 U/L (46-116) Aspartate Amino Transferase (AST) 17 U/L (13-40) Total Bilirubin 0.8 mg/dL (0.2-1.0) Urinalysis Test 07/08/25 09:14 Urine Color Colorless (Yellow) Urine Clarity Ex.turbid (Clear) Urine pH 6.0 (5.0-9.0) Urine Specific [place] 1.008 (1.001-1.035) Urine Protein Trace (Negative) H Urine Ketones 1+ (Negative) H Urine Blood 2+ /uL (Negative) H Urine Nitrite 1+ (Negative) H Urine Bilirubin Negative (Negative) Urine Urobilinogen Normal mg/dL (Negative) Urine Leukocyte Esterase 3+ /uL (Negative) Urine RBC 4 /hpf (0 - 3) Urine WBC Clumps Present /hpf (None Seen) Urine Microscopic WBC 1469 /HPF (0-3) H Urine Squamous Epithelial Cells None seen /hpf (<5) Urine Bacteria Few /hpf (None Seen) H Urine Glucose 2+ mg/dL (Normal) H Labs and/or images reviewed: Labs reviewed by me, Image(s) reviewed by me Assessment/Plan Assessment/Plan Impression: -sepsis -chronic bladder outlet obstruction with self catheterization -diabetes mellitus -complicated cystitis -obesity Plan: -change antibiotic therapy to Meropenem -regular insulin sliding scale -check hemoglobin A1c -blood and urine culture -IV hydration -repeat labs in a.m. Total time spent with patient discussing and formulating plan of care: 35 minutes. This medical document was created using an electronic medical record system with [employer] dictation system. Although this document has been carefully reviewed, there may still be some phonetic and typographical errors. These areas are purely typographical due to imperfections of the software programs, and do not reflect any compromise in the patient's medical care. Plan discussed with: Patient, Other (RN) My Orders Orders - DAYSI GERARD NP Procedure Category Date Status Time Sodium Chloride 0.9% PHA 07/08/25 In Process 11:30 Meropenem 1gm Ivpb PHA 07/08/25 In Process (Merrem 1gm/50ml) 14:00 Hemoglobin A1c LAB 07/08/25 Logged 12:26 Date of Service: Jul 08, 2025 Billing Provider: DAYSI GERARD NP Common Visit Codes: [id number] INP/OBS CARE(HIGH) DAYSI GERARD NP Jul 08, 2025 12:34
[2025-07-08] MEDS ORDERED: MEROPENEM 1GM IVPB 50 ML IV SCH (14:00)
[2025-07-08] MEDS: MEROPENEM 1GM IVPB 50 ML IV SCH (18:41)
[2025-07-08] MEDS: ATORVASTATIN 20 MG TAB PO SCH (22:19)
[2025-07-08] MEDS: guaiFENesin-DM 100/10mg/5ml SYR PO PRN (23:18)
[2025-07-09] VITALS (11 sets, daily range): BP systolic 109–155; BP diastolic 59–85; PULSE 77–103; RESP 16–20; TEMP 97.9–98.3; O2SAT 95–99
[2025-07-09 05:54] LABS: Calcium 9.0 mg/dL (8.7-10.4); Chloride 103 mmol/L (98-107); Potassium 3.7 mmol/L (3.5-5.1); Sodium 138 mmol/L (136-145)
[2025-07-09 05:55] LABS: Anion Gap 13 (5-15); Carbon Dioxide 22 mmol/L (20-31)
[2025-07-09 06:00] LABS: BUN/Creatinine Ratio 11.9 (10.0-20.0); Blood Urea Nitrogen 10 mg/dL (9-23)
[2025-07-09 06:01] LABS: Glucose 206 mg/dL (74-106); Hematocrit 32.0 % (41.0-53.0); Hemoglobin 10.9 g/dL (13.5-17.5); Mean Corpuscular Hemoglobin 27.6 pg (28.0-32.0); Mean Corpuscular Volume 81.3 fL (80.0-100.0); Nucleated Red Blood Cells % 0.1 %
--- NOTE | 2025-07-09 12:01 | DVHPN2 ---
Subjective Patient continues to report having shortness of breath. States that his generalized weakness has improved. Reviewed: Care Plan, H&P, Labs, Medications, Previous Orders Changes from previous H/P or p: No Changes General: Per HPI Objective Vitals Vital Signs Date Time Temp Pulse Resp B/P (MAP) Pulse Ox O2 Delivery O2 Flow Rate FiO2 07/09/25 09:00 97.9 103 16 109/59 (76) 97 97.9 07/09/25 08:22 Nasal Cannula 2.0 07/09/25 08:22 28 Intake/Output Intake and Output 07/09/25 07:00 Intake Total 600 ml Output Total 900 ml Balance -300 ml Intake Oral 500 ml IV Total 100 ml Output Urine Total 900 ml General Appearance: Alert, Oriented X3, Cooperative, mild distress HEENT: Atraumatic, PERRLA Cardiovascular: Normal S1, Normal S2 Abdomen: Normal bowel sounds, Soft, No tenderness, No hepatospenomegaly Genitourinary: No Apparent Abnormalities (Zabala catheter with sediment) Musculoskeletal: Normal sensory function, Normal motor function Extremities: No clubbing, No cyanosis Neuro: Normal gait, Normal speech Skin: Dry, Intact Psych/Mental Status: Mental status NL, Mood NL Medications Current Medications Medications Dose Ordered Sig/[place] Route Start Time Stop Time Status Last Admin Dose Admin Guaifenesin/ Dextromethorphan 10 ml Q4HP PRN PO 07/08/25 00:15 07/08/25 23:18 10 ML Albuterol 2.5 mg Q6HPRN PRN NEB 07/08/25 00:15 Atorvastatin Calcium 40 mg HS PO 07/08/25 22:00 07/08/25 22:19 40 MG Diagnostic Test (Pha) 1 strip ACHS 07/08/25 07:00 07/09/25 06:03 1 STRIP Insulin Human Regular ACHS SC 07/08/25 07:00 07/09/25 06:04 4 UNITS Dextrose 50 ml UD PRN IV 07/08/25 00:15 Ondansetron HCl 4 mg Q4HP PRN IV 07/08/25 00:15 Acetaminophen 650 mg Q6HP PRN PO 07/08/25 00:15 Nitroglycerin 0.4 mg Q5MINP PRN SL 07/08/25 00:15 Morphine Sulfate 2 mg Q30M PRN IV 07/08/25 00:15 Sodium Chloride 1,000 ml @ 100 mls/hr Q10H IV 07/08/25 11:30 07/08/25 11:30 100 MLS/HR Meropenem 50 ml @ 17 mls/hr Q8H IV 07/08/25 18:30 07/09/25 10:47 17 MLS/HR Laboratory Results Laboratory Tests 07/09/25 05:12 Chemistry Test 07/09/25 05:12 Calcium Level 9.0 mg/dL (8.7-10.4) Urinalysis Test 07/08/25 09:14 Urine Color Colorless (Yellow) Urine Clarity Ex.turbid (Clear) Urine pH 6.0 (5.0-9.0) Urine Specific [place] 1.008 (1.001-1.035) Urine Protein Trace (Negative) H Urine Ketones 1+ (Negative) H Urine Blood 2+ /uL (Negative) H Urine Nitrite 1+ (Negative) H Urine Bilirubin Negative (Negative) Urine Urobilinogen Normal mg/dL (Negative) Urine Leukocyte Esterase 3+ /uL (Negative) Urine RBC 4 /hpf (0 - 3) Urine WBC Clumps Present /hpf (None Seen) Urine Microscopic WBC 1469 /HPF (0-3) H Urine Squamous Epithelial Cells None seen /hpf (<5) Urine Bacteria Few /hpf (None Seen) H Urine Glucose 2+ mg/dL (Normal) H Microbiology Microbiology Date/Time Source Procedure Growth Status 07/07/25 19:45 Blood Blood Culture - Preliminary NO GROWTH AFTER 24 HOURS OF INCUBATION. Resulted Labs and/or images reviewed: Labs reviewed by me, Image(s) reviewed by me Assessment/Plan Assessment/Plan Impression: -sepsis -chronic bladder outlet obstruction with self catheterization -diabetes mellitus -complicated cystitis -obesity Plan: Events: No events overnight. Patient clinically improving. -continue Meropenem until cultures has been obtained -regular insulin sliding scale -restart home medications -blood and urine culture -decrease normal saline to 60 mL/hour -repeat labs in a.m. -discussed plan of care with the patient. Patient is clinically stable to transfer to [facility]. Patient states that he belongs to [facility] system and does not want to go to [place]. Defer to case management for discussion regarding insurance coverage Total time spent with patient discussing and formulating plan of care: 35 minutes. This medical document was created using an electronic medical record system with [employer] dictation system. Although this document has been carefully reviewed, there may still be some phonetic and typographical errors. These areas are purely typographical due to imperfections of the software programs, and do not reflect any compromise in the patient's medical care. Plan discussed with: Patient, Other (RN) My Orders Orders - DAYSI GERARD NP Procedure Category Date Status Time * Aws Architect CONS 07/08/25 Transmitted Consult Meropenem 1gm Ivpb PHA 07/08/25 In Process (Merrem 1gm/50ml) 18:30 NS PHA 07/09/25 Verified 12:00 * Aws Architect CONS 07/09/25 Verified Consult Chest Two Views XY 07/09/25 Verified Routine 11:57 Basic Metabolic Panel LAB 07/10/25 Verified 04:00 Complete Blood Count LAB 07/09/25 Verified 11:57 Date of Service: Jul 09, 2025 Billing Provider: DAYSI GERARD NP Common Visit Codes: [id number] INP/OBS CARE(HIGH) DAYSI GERARD NP Jul 09, 2025 12:01
[2025-07-09] MEDS: ACETAMINOPHEN 325 MG TAB PO PRN (12:51)
[2025-07-09 13:12] LABS: Hematocrit 33.5 % (41.0-53.0); Hemoglobin 11.3 g/dL (13.5-17.5); Mean Corpuscular Hemoglobin 27.3 pg (28.0-32.0); Mean Corpuscular Volume 80.7 fL (80.0-100.0); Nucleated Red Blood Cells % 0.0 %
--- NOTE | 2025-07-09 14:20 | ECG ---
[facility] Test Date: 2025-07-07 Test Time: 18:57:29 Pat Name: OLIVIA BARKER Department: ED Room: 0287T Gender: M Nursing Secretary: CARLITOS : 1965 Requested By: FARAZ GONZALEZ Order Number: [id number] Reading MD: Abelino Shahid Measurements Intervals [place] Rate: 107 P: 45 MO: 121 QRS: 110 QRSD: 84 T: 61 QT: 388 QTc: 518 Interpretive Statements Sinus tachycardia Right axis deviation Low voltage, precordial leads Prolonged QT interval Electronically Signed On 07-11-2025 19:14:58 PST by Abelino Shahid Please click the below link to view image of tracing.
--- NOTE | 2025-07-09 14:42 | DVH ---
XY CHEST TWO VIEWS ROUTINE CLINICAL HISTORY: pna COMPARISON: None TECHNIQUE: Frontal and lateral view of the chest was obtained FINDINGS: Lines and Tubes: None Lungs: Prominent bronchovascular markings in the lung bases may represent atelectasis. Pleura: No effusion. No pneumothorax. Cardiomediastinal contours: Unremarkable Bones: No acute osseous abnormality. IMPRESSION: 1. Mildly prominent bronchovascular markings in lung bases most likely representing areas of atelectasis. Can not entirely exclude developing areas of pneumonia.
[2025-07-09] MEDS: ALBUTEROL SULF 2.5 MG/0.5ML(0.5%) NEB SOLN NEB PRN (18:12)
[2025-07-09] MEDS: SODIUM CHLORIDE 0.9% 1,000 ML IV SCH (22:27)
[2025-07-09] MEDS: MELATONIN 5 MG TAB PO ONE (23:34)
[2025-07-10] VITALS (7 sets, daily range): BP systolic 118–150; BP diastolic 59–85; PULSE 69–95; RESP 16–18; TEMP 97.8–98.3; O2SAT 97–99
[2025-07-10 07:37] LABS: Chloride 106 mmol/L (98-107); Potassium 3.8 mmol/L (3.5-5.1); Sodium 140 mmol/L (136-145)
[2025-07-10 07:38] LABS: Anion Gap 11 (5-15); Carbon Dioxide 23 mmol/L (20-31)
[2025-07-10 07:39] LABS: Calcium 9.2 mg/dL (8.7-10.4)
[2025-07-10 07:43] LABS: BUN/Creatinine Ratio 8.8 (10.0-20.0)
[2025-07-10 07:49] LABS: Blood Urea Nitrogen 7 mg/dL (9-23); Glucose 190 mg/dL (74-106)
--- NOTE | 2025-07-10 14:05 | DVHDS2 ---
Discharge Summary Date of Admission Jul 08, 2025 at 00:09 Date of Discharge: Jul 10, 2025 Admitting Diagnosis Sepsis Labs/Diagnostic Data: Laboratory Results Test 07/10/25 10:50 07/10/25 05:48 07/09/25 12:58 07/08/25 09:14 POC Glucose 248 mg/dl (70-106) Sodium Level 140 mmol/L (136-145) Potassium Level 3.8 mmol/L (3.5-5.1) Chloride Level 106 mmol/L (98-107) Carbon Dioxide Level 23 mmol/L (20-31) Anion Gap 11 (5-15) Blood Urea Nitrogen 7 mg/dL (9-23) Creatinine 0.80 mg/dL (0.700-1.30) Glomerular Filtration Rate Calc 103 mL/min (>90) BUN/Creatinine Ratio 8.8 (10.0-20.0) Serum Glucose 190 mg/dL (74-106) Calcium Level 9.2 mg/dL (8.7-10.4) White Blood Count 7.3 10^3/uL (4.4-10.8) Red Blood Count 4.15 10^6/uL (4.5-5.90) Hemoglobin 11.3 g/dL (13.5-17.5) Hematocrit 33.5 % (41.0-53.0) Mean Corpuscular Volume 80.7 fL (80.0-100.0) Mean Corpuscular Hemoglobin 27.3 pg (28.0-32.0) Mean Corpuscular Hemoglobin Concent 33.9 g/dL (32.0-36.0) Red Cell Distribution Width 15.9 % (11.8-14.3) Platelet Count 344 10^3/uL (140-450) Mean Platelet Volume 6.4 fL (6.9-10.8) Neutrophils (%) (Auto) 71.7 % (37.0-80.0) Lymphocytes (%) (Auto) 18.3 % (10.0-50.0) Monocytes (%) (Auto) 8.7 % (0.0-12.0) Eosinophils (%) (Auto) 0.7 % (0.0-7.0) Basophils (%) (Auto) 0.6 % (0.0-2.0) Neutrophils # (Auto) 5.2 10 ^3/uL (1.6-8.6) Lymphocytes # (Auto) 1.3 10 ^3/uL (0.4-5.4) Monocytes # (Auto) 0.6 10 ^3/uL (0-1.3) Eosinophils # (Auto) 0 10 ^3/uL (0-0.8) Basophils # (Auto) 0 10 ^3/uL (0-0.2) Nucleated Red Blood Cells 0.0 % Urine Color Colorless (Yellow) Urine Clarity Ex.turbid (Clear) Urine pH 6.0 (5.0-9.0) Urine Specific [place] 1.008 (1.001-1.035) Urine Protein Trace (Negative) Urine Ketones 1+ (Negative) Urine Blood 2+ /uL (Negative) Urine Nitrite 1+ (Negative) Urine Bilirubin Negative (Negative) Urine Urobilinogen Normal mg/dL (Negative) Urine Leukocyte Esterase 3+ /uL (Negative) Urine RBC 4 /hpf (0 - 3) Urine WBC Clumps Present /hpf (None Seen) Urine Microscopic WBC 1469 /HPF (0-3) Urine Squamous Epithelial Cells None seen /hpf (<5) Urine Bacteria Few /hpf (None Seen) Urine Glucose 2+ mg/dL (Normal) Test 07/08/25 02:29 07/08/25 00:34 07/07/25 22:53 07/07/25 19:37 Lactic Acid Level 4.5 mmol/L (0.4-2.0) Hemoglobin A1c 8.1 % A1C (<5.7) Hepatitis B Surface Antigen Negative (Negative) Hepatitis C Antibody Negative (Negative) Influenza Type A Antigen Negative (Negative) Influenza Type B Antigen Negative (Negative) SARS-CoV-2 Antigen (Rapid) Negative (NEGATIVE) Total Bilirubin 0.8 mg/dL (0.2-1.0) Aspartate Amino Transferase (AST) 17 U/L (13-40) Alanine Aminotransferase (ALT) 18 U/L (7-40) Alkaline Phosphatase 100 U/L (46-116) Total Protein 7.6 g/dL (5.7-8.2) Albumin 4.5 g/dL (3.2-4.8) Other Laboratory Tests 07/10/25 05:48 07/09/25 12:58 Brief Hx & Hospital Course: History of Present Illness 52-year-old male presents for evaluation of fever. Patient reports a one-week of shortness for breath with associated cough with white phlegm as well as body aches and fever. He also reports dysuria. He reports a history of recurrent UTIs. Denies chest pain. No abdominal pain. Course of hospitalization: Patient had blood and urine cultures with no growth. Patient's white blood cell count improved. Clinically patient has improved dramatically in his requesting to be discharged home. Patient has a history of self catheterizations with multiple admissions for urinary tract infection. Patient will have his Zabala catheter remain, and placed to a leg bag. He is instructed to follow up with his PCP as well as urologist with the [facility]. He will be continued on antibiotic therapy with cefdinir 300 mg p.o. b.i.d. for an additional 10 days. He will continue all previous home medications. All questions answered. Physical examination General: Alert and Oriented x3. No acute distress. Well-nourished. Eyes: EOMI. Anicteric. HENT: Moist mucous membranes. Lungs: Clear to auscultation bilaterally. No accessory muscle use. Cardiovascular: Regular rate and rhythm. No murmur. No JVD. Abdomen: Soft, non-tender and non-distended. No palpable masses. Extremities: No edema. Non-tender. Skin: No rashes or lesions. Warm. Neurologic: No focal neurological deficits. CN II-XII grossly intact, but not individually tested. Psychiatric: Cooperative. Appropriate mood and affect. Total time spent with patient discussing and formulating plan of care: 35 minutes. This medical document was created using an electronic medical record system with [employer] dictation system. Although this document has been carefully reviewed, there may still be some phonetic and typographical errors. These areas are purely typographical due to imperfections of the software programs, and do not reflect any compromise in the patient's medical care. Condition at Discharge: Guarded Final Diagnosis/Problems List Sepsis Complicated cystitis-sepsis -chronic bladder outlet obstruction with self catheterization -diabetes mellitus -complicated cystitis -obesity Discharge Disposition: Home Discharge Instruct/Medications Diet: Cardiac 2g Na,low cholest Activity: No Restrictions, As Tolerated Follow Up/Referral: Follow up with PCP in two weeks Medications: Cefdinir 300 mg p.o. b.i.d. times 10 days Continue all previous home medications Scheduled Atorvastatin Calcium (Atorvastatin Calcium), 1 TAB PO DAILY, (Reported) Bupropion Hcl (Bupropion Hcl), 150 MG PO DAILY, (Reported) Buspirone Hcl (Buspirone Hcl), 30 MG PO DAILY, (Reported) Cephalexin (Keflex Capsule), 250 MG PO QID Ciprofloxacin Hcl (Cipro), 1 TAB PO BID Ibuprofen (Ibuprofen), PRN, (Reported) Sitagliptin Phosphate (Januvia), 1 TAB PO DAILY, (Reported) Tramadol Hcl (Tramadol Hcl), 50 MG PO TID, (Reported) Scheduled PRN Hydroxyzine Hcl (Hydroxyzine Hcl), 50 MG PO for ANXIETY, (Reported) Trazodone Hcl (Trazodone Hcl), 100 MG PO DAILY PRN for sleep, (Reported) Miscellaneous Medications Armodafinil (Armodafinil), 50 MG PO, (Reported) Glipizide (Glipizide), 5 MG PO, (Reported) Ibuprofen (Ibuprofen), 800 MG PO, (Reported) Melatonin ( Melatonin), 5 MG PO, (Reported) Metformin Hydrochloride (Metformin Hcl), 1,000 MG PO, (Reported) [Just Finished Cipro], (Reported) 36 Discharge Statement: "Patient was advised to return to the ER or call 911 if any headaches, dizziness, shortness of breath, chest pain, abdominal pain, bleeding, fevers, or worsening of medical condition. Patient was counseled about treatment plan, medications, possible side effects, patientverbalized understanding. All questions were answered to the best of my ability. This discharge took greater then 30 minutes in planning, reviewing documentation, counseling the patient, and discussing with other team members." ASSESSMENT ASSESSMENT Assessment Sepsis Complicated cystitis Date of Service: Jul 10, 2025 Billing Provider: DAYSI GERARD NP Common Visit Codes: [id number] DISCH DAY >30min DAYSI GERARD NP Jul 10, 2025 14:05
[2025-07-10] MEDS ORDERED: CEFD300C2 PO (14:48)
== END 2025-07-10 15:52 | disposition home or self-care (01) | DRG 871 ==
LOC: ER 18:46 → OVERFLOW 07-08 00:09 → TELE-WESTW 07-09 21:35
PROVIDERS: ADMIT Nurse Practitioner Acute Care; ATTEND Nurse Practitioner Acute Care
DX: A41.9 Sepsis, unspecified organism (principal); N17.0 Acute kidney failure with tubular necrosis; N30.90 Cystitis, unspecified without hematuria; E11.9 Type 2 diabetes mellitus without complications; E66.9 Obesity, unspecified; F17.210 Nicotine dependence, cigarettes, uncomplicated; N32.0 Bladder-neck obstruction; J98.4 Other disorders of lung; Z88.2 Allergy status to sulfonamides; Z79.2 Long term (current) use of antibiotics; Z79.1 Long term (current) use of non-steroidal anti-inflammatories (NSAID); Z79.84 Long term (current) use of oral hypoglycemic drugs; Z79.899 Other long term (current) drug therapy; Z68.32 Body mass index [BMI] 32.0-32.9, adult
CPT/HCPCS: 36415; 71045; 71046; 80048; 80053; 81001; 82962; 83036; 83605; 85025; 86803; 87040; 87086; 87340; 87426; 87804; 93005; 94640; 96365; 99291; G0378; J1815; J2185